=== PATIENT | female | born 1960 | race Caucasian/White ===

== ENCOUNTER 2020-01-21 13:48 | Outpatient (CLI) | payer OTHER ==
[2020-01-21 18:02] LABS: Mean Corpuscular HGB CONC 32.7 G/DL (32.0-36.0); Mean Corpuscular Hemoglobin 28.3 PG (27.0-33.0); Mean Corpuscular Volume 86.5 fl (80.0-100.0); Mean Platelet Volume 9.5 fl (7.4-10.4); Platelet Count 296 10x3/uL (130-400); RBC Distribution Width 13.2 % (11.5-14.5); Red Blood Cell (RBC) Count 4.95 10x6/uL (3.90-5.20)
[2020-01-21 18:08] LABS: Anion Gap 15 mmol/L (10-20); BUN (Urea Nitrogen) 16 mg/dL (9.8-20.1); Calc. Creatinine Clearance 0 mL/min (70-130); Calcium 9.3 mg/dL (7.8-10.44); Carbon Dioxide 29 mmol/L (23-31); Chloride 91 mmol/L (98-107); Estimated GFR-MDRD 68; Glucose 104 mg/dL (80-115); Potassium 5.1 mmol/L (3.5-5.1); Sodium 130 mmol/L (136-145)
[2020-01-22 04:28] LABS: SARS-CoV-2 MS2 Positive; SARS-CoV-2 N Gene Negative; SARS-CoV-2 S Gene Negative; SARS-CoV-2 by NAA Not Detected (NotDetected); SARS-CoV-2 orf1ab Negative
--- NOTE | 2020-01-26 07:16 | EKG ---
Test Reason : Blood Pressure : / mmHG Vent. Rate : 065 BPM Atrial Rate : 065 BPM P-R Int : 162 ms QRS Dur : 072 ms QT Int : 386 ms P-R-T Axes : 026 083 046 degrees QTc Int : 401 ms Normal sinus rhythm Low voltage QRS Nonspecific ST abnormality Abnormal ECG No previous ECGs available Confirmed by JENNIFER IVEY MD ([id number]) on 01/26/2020 7:16:17 AM Referred By: EDVIN Confirmed By:JENNIFER IVEY MD
== END 2020-01-21 13:49 | disposition home or self-care (01) ==
LOC: LABBT 13:48
PROVIDERS: ATTEND Student in an Organized Health Care Education/Training Program
DX: Z01.818 Encounter for other preprocedural examination (principal); Z20.828 Contact with and (suspected) exposure to other viral communicable diseases; J38.00 Paralysis of vocal cords and larynx, unspecified; J39.2 Other diseases of pharynx; J31.2 Chronic pharyngitis; J38.3 Other diseases of vocal cords
CPT/HCPCS: 80048; 87635; 93005; 93010; U0003

== ENCOUNTER 2020-01-26 08:11 | Inpatient (IN) | payer OTHER ==
[2020-01-25 13:25] VITALS: BMI 26.3
[2020-01-26] MEDS ORDERED: Dexamethasone 20 MG/5 ML VIAL ONE (09:04)
[2020-01-26] MEDS ORDERED: ePHEDrine 50 MG/ML VIAL ONE (09:04)
[2020-01-26] MEDS ORDERED: PROPOFOL 200 MG/20 ML VIAL ONE (09:04)
[2020-01-26] MEDS ORDERED: PHENYLEPHRINE-NS 100 MCG/ML 10 ML SYRINGE ONE (09:04)
[2020-01-26] MEDS ORDERED: Glycopyrrolate 0.2 MG/ML 5 ML SYRINGE ONE (09:04)
[2020-01-26] MEDS ORDERED: Albuterol Sulfate HFA (OR ONLY) ONE (09:04)
[2020-01-26] MEDS ORDERED: Succinylcholine 200 MG/10 ml SYRINGE FS ONE (09:04)
[2020-01-26] MEDS ORDERED: Lidocaine 1% PF 5 ML VIAL ONE (09:04)
[2020-01-26] MEDS ORDERED: Rocuronium Bromide 10 MG/ML (10ML VIAL) ONE (09:04)
[2020-01-26] MEDS ORDERED: Ondansetron PF 4 MG/2 ML Vial ONE (09:04)
[2020-01-26] MEDS ORDERED: EPINEPHrine 1 MG/ML AMP ONE (09:24)
[2020-01-26] MEDS ORDERED: Dexmedetomidine 200 MCG/2 ML VIAL ONE (09:26)
[2020-01-26] MEDS ORDERED: Fentanyl 100 MCG/2 ML VIAL ONE ×3 (09:26→13:24)
[2020-01-26] MEDS ORDERED: Midazolam HCl 2 mg/2 ml Vial ONE (09:32)
[2020-01-26] MEDS ORDERED: Propofol 1,000 MG/100 ML VIAL IV ONE (09:51)
[2020-01-26] MEDS ORDERED: Propofol 500 MG/50 ML VIAL ONE (09:51)
[2020-01-26] MEDS ORDERED: SUGAMMADEX SODIUM 500 MG/5 ML VIAL ONE (09:52)
[2020-01-26] MEDS ORDERED: SUGAMMADEX SODIUM 200 MG/2 ML VIAL ONE (09:53)
[2020-01-26] MEDS ORDERED: Promethazine HCl 25 MG/ML VIAL SLOW IVP PRN (10:33)
[2020-01-26] MEDS ORDERED: Promethazine HCl 25 MG/ML VIAL IM PRN (10:33)
[2020-01-26] MEDS ORDERED: Ondansetron HCl/PF 4 MG/2 ML Vial IVP PRN (10:33)
[2020-01-26] MEDS ORDERED: Acetaminophen 325 MG TAB PO PRN (15:54)
[2020-01-26] MEDS ORDERED: diphenhydrAMINE 50 MG/ML VIAL IVP PRN (15:56)
[2020-01-26] MEDS: Dexamethasone 10 MG/ML VIAL SLOW IVP SCH ×2 (16:59→22:47)
[2020-01-26] MEDS: HYDROcodone/Acetaminophen 5/325 mg Tablet PO PRN ×2 (17:09→22:47)
[2020-01-26] MEDS: Famotidine 20 MG TAB PO SCH (21:17)
--- NOTE | 2020-01-27 06:57 | OP ---
DATE OF PROCEDURE: 01/26/2020 PREOPERATIVE DIAGNOSES: Laryngeal mass, hoarseness, and difficulty breathing with exertion. POSTOPERATIVE DIAGNOSES: Laryngeal mass, hoarseness, and difficulty breathing with exertion. PROCEDURES PERFORMED: Excision of laryngeal mass, biopsy, and laryngoscopy with operative telescope. PERMIT: Procedures, benefits, and risks including those of bleeding, infection, injury from anesthesia, changes to voice, allergic reaction, scarring and shortness of breath necessitating revision repair, and the possible need for tracheostomy and alternatives were reviewed with the patient and family who expressed understanding of the information. The consent form was signed and witnessed and a paper copy of the consent form is available for review in the paper chart. INDICATIONS: A 59-year-old female patient presenting to the clinic with few months of hoarseness and increasing difficulty breathing. Flexible laryngoscopy showed a left-sided true vocal fold immobility with glottic and subglottic mass. CT scan confirmed a laryngeal mass without significant lymphadenopathy. The patient presented to the clinic requesting evaluation and treatment and given the mass location, she was taken to the operating room now for operative intervention. ASSISTANTS: None. FINDINGS: Left-sided true vocal fold and subglottic laryngeal mass. DESCRIPTION OF OPERATION: The patient was brought to the operating room and laid supine on operating room table. The patient was preoxygenated with a mask and mask assisted ventilation with minimal sedation was given. After the patient was sedated with minimal sedation and succinylcholine, both Anesthesia and myself evaluated the larynx and it was clear that an endotracheal tube could not be passed around the mass safely without causing significant bleeding and so the patient was turned 90 degrees towards the operative table and a 2 Adorno laryngoscope was used to suspend the epiglottis in the larynx and a rigid endoscope was used with a 5.0 endotracheal tube over the endoscope was used to intubate the patient using a Seldinger technique, and the endoscope was used to confirm the placement of the endotracheal tube after which the Anesthesia confirmed placement of the endotracheal tube visually as well as with end-tidal CO2 with tidal volume and chest expansion as well as with auscultation. After the patient was intubated carefully, a Jayesh laryngoscope was used to suspend the larynx and the larynx was suspended on a bed mounted Joseph stand. After this was completed, the larynx was suctioned. There was a minimal amount of bleeding from previous intubation attempts by Anesthesia, which was suctioned clear and the mass was clearly seen. Several small biopsies were taken with a small cup forceps and sent for permanent pathologic evaluation. Using with the help of the operative endoscope, after which large cup forceps were used to continually remove sections and debride sections of the tumor. After the tumor was debulked, the laryngeal microdebrider was brought and placed on a setting of 3000 rpm and with the help of the operative telescope, the tumor was continually excised back towards the cartilage of the larynx, both in an effort to alleviate the patient's mass effect of the tumor on the airway as well as to open a passage for evaluation and for suctioning and for the endotracheal tube. After this was complete, the Jayesh laryngoscope was removed and the larynx was suctioned and the endotracheal tube was removed. Again, a 2 Adorno laryngoscope was then used to evaluate the larynx and then saw that the mass effect from the tumor had largely been alleviated and then afterwards the endotracheal tube was replaced using the same technique. The area was then irrigated and suctioned and an epinephrine-soaked pledget was placed in order to achieve hemostasis. The operative telescope was then used to evaluate the larynx, both the glottis and subglottis and there was significant room for the endotracheal tube to be replaced and removed. The patient was turned over to Anesthesia for emergence and the patient was extubated and was breathing well without stridor and transferred to the PACU with pulse oximeter. In the PACU, the patient was monitored with pulse oximetry and no stridor or difficulty breathing or upper airway noises were seen or heard, and the patient was breathing well and admitted for observation. Job ID: [id number]
[2020-01-27] MEDS: HYDROcodone/Acetaminophen 5/325 mg Tablet PO PRN (08:00)
[2020-01-27] MEDS: Famotidine 20 MG TAB PO SCH (08:00)
[2020-01-27] MEDS: Dexamethasone 10 MG/ML VIAL SLOW IVP SCH (08:01)
[2020-01-27 09:32] VITALS: BP 152/83; TEMP 97.7
--- NOTE | 2020-01-30 03:41 | PQF ---
Dear : Rodney Zavala Date 01/30/20 Please exercise your independent, professional judgment in responding to the clarification form. Clinical indicators are provided on the bottom of this form for your review Can you please further clarify the diagnosis of the patient? ___ Final Diagnosis on the Pathology report: Invasive well differentiated squamous cell carcinoma Please check appropriate box(es): [ ] Agree w the pathology finding of: Invasive well differentiated squamous cell carcinoma [ ] Other explanation of pathology findings (please specify) [x ] Other diagnosis please specify laryngeal squamous cell carcinoma [ ] Unable to determine Physician Signature: Date/Time: For continuity of documentation, please document condition throughout progress notes and discharge summary. Thank You. To be completed by CDI/Coding staff for physician review: Present Clinical Indicators - Signs / Symptoms / Labs Results and Location in Medical Record [ x ] Invasive well differentiated squamous cell carcinoma Pathology Report [ x ] The majority of the tissue is involved by the carcinoma OP report pg.1 [ x ] Laryngeal mass OP report pg.1 [ x ] Hoarseness OP report pg.1 [ x ] Difficulty of breathing with exertion OP report pg.1 [ x ] Left sided true vocal fold and subglottic laryngeal mass OP report pg.1 Present Risk Factors Results and Location in Medical Record [ x ] 59 years old Anesthesia record [ x ] HTN Anesthesia record [ x ] Smoker PPD x 40 years Anesthesia record [ x ] Family History of cancer HP 01/25 Present Treatments Results and Location in Medical Record [ x ] Laryngeal biopsy OP report pg. 1 [ x ] Laryngoscopy with operative telescope OP report pg. 1 [ x ] IV Fluids MAR CDS/[employer] Signature: Santosh Olivares Phone #: [facility] [phone] Date This is a permanent part of the Medical Record [facility]
== END 2020-01-27 09:55 | disposition home or self-care (01) | DRG 145 ==
LOC: SDC 08:11 → T4-A 11:24
PROVIDERS: ADMIT Student in an Organized Health Care Education/Training Program; ATTEND Student in an Organized Health Care Education/Training Program
PROC: 0CBS8ZZ Excision of Larynx, Via Natural or Artificial Opening Endoscopic (ICD-10-PCS; principal; 2020-01-26)
DX: C32.9 Malignant neoplasm of larynx, unspecified (principal); J38.00 Paralysis of vocal cords and larynx, unspecified; Z20.828 Contact with and (suspected) exposure to other viral communicable diseases; I10 Essential (primary) hypertension; I25.10 Atherosclerotic heart disease of native coronary artery without angina pectoris; J30.2 Other seasonal allergic rhinitis; F41.9 Anxiety disorder, unspecified; F17.210 Nicotine dependence, cigarettes, uncomplicated; Z88.5 Allergy status to narcotic agent; I25.2 Old myocardial infarction; Z95.810 Presence of automatic (implantable) cardiac defibrillator; Z79.82 Long term (current) use of aspirin; Z79.01 Long term (current) use of anticoagulants
CPT/HCPCS: 88305; J0171; J0690; J1100; J2250; J2405; J2704; J3010; J3490

== ENCOUNTER 2020-02-09 09:12 | Outpatient (CLI) | payer OTHER ==
--- NOTE | 2020-02-09 14:03 | PET ---
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 Exam requested for initial staging. TECHNIQUE: PET scanning with CT attenuation correction was performed from the vertex through the proximal thighs following the intravenous administration of 12 mCi F18-FDG in the right antecubital fossa. FINDINGS: There is intense FDG localization in the mass involving the left glottis with a SUV of 11.6. There is mildly increased uptake in a left Level II cervical lymph node with a SUV of 2.6. No nicholas hypermetabolism is seen in the right side of the neck, chest, axilla, abdomen, pelvis, or in guinal regions. No hypermetabolic pulmonary nodules, liver, adrenal glands, or skeleton are seen. There is physiologic activity in the brain, GI and tracts. The CT scan used for attenuation correction demonstrates no evidence of pleural effusions or ascites. There is scarring at the peripheral aspect of the left lower lobe and an 18 mm ground-glass nodule i n the superior segment of the right lower lobe. IMPRESSION: 1. Left vocal cord malignancy with probable left Level II cervical lymph nicholas metastasis. 2. Nonhypermetabolic 18 mm right lower lobe lung nodule. A follow-up CT scan of the chest is recomme nded in 3 months. POS: SHINE
== END 2020-02-09 09:13 | disposition home or self-care (01) ==
LOC: PET 09:12
PROVIDERS: ATTEND Radiology Radiation Oncology
DX: C32.0 Malignant neoplasm of glottis (principal); R91.1 Solitary pulmonary nodule
CPT/HCPCS: 78815; A9552

== ENCOUNTER 2020-02-24 08:45 | Day surgery (SDC) | payer OTHER ==
[2020-02-24] MEDS ORDERED: CISplatin 75 MG, manNITOL 12.5 GM in Sodium Chloride 0.9% 500 ML IV SCH (09:00)
[2020-02-24] MEDS ORDERED: Sodium Chloride 0.9% 500 ML IV SCH ×2 (09:00)
[2020-02-24] MEDS ORDERED: PALONOSETRON HCL 0.05 MG/ML 5 ML VIAL IVP SCH (09:00)
[2020-02-24 09:16] VITALS: BP 104/59; TEMP 97.7
[2020-02-24] MEDS ORDERED: Sodium Chloride 0.9% 20 ML ONE (09:32)
== END 2020-02-24 13:42 | disposition home or self-care (01) ==
LOC: ONC/OP 08:45
PROVIDERS: ATTEND Internal Medicine Hematology & Oncology
DX: Z51.11 Encounter for antineoplastic chemotherapy (principal); C32.9 Malignant neoplasm of larynx, unspecified; F17.210 Nicotine dependence, cigarettes, uncomplicated; Z88.5 Allergy status to narcotic agent
CPT/HCPCS: 96361; 96367; 96375; 96413; J1100; J1453; J2150; J2469; J3480; J3490; J7030; J9060

== ENCOUNTER 2020-03-02 09:07 | Day surgery (SDC) | payer OTHER ==
[~2020-03-02 09:07] MED LIST: CISplatin 75 MG, manNITOL 12.5 GM in Sodium Chloride 0.9% 500 ML IV SCH; PALONOSETRON HCL 0.05 MG/ML 5 ML VIAL IVP SCH; Sodium Chloride 0.9% 500 ML IV SCH
[2020-03-02] MEDS ORDERED: Sodium Chloride 0.9% 20 ML ONE (09:57)
[2020-03-02 14:48] VITALS: BP 138/69; TEMP 97.9
== END 2020-03-02 14:51 | disposition home or self-care (01) ==
LOC: ONC/OP 09:07
PROVIDERS: ATTEND Internal Medicine Hematology & Oncology
DX: Z51.11 Encounter for antineoplastic chemotherapy (principal); C32.9 Malignant neoplasm of larynx, unspecified; F17.210 Nicotine dependence, cigarettes, uncomplicated; Z88.5 Allergy status to narcotic agent
CPT/HCPCS: 96361; 96367; 96375; 96413; J1100; J1453; J2150; J2469; J3480; J3490; J7030; J9060

== ENCOUNTER 2020-04-04 14:36 | Inpatient (IN) | payer BC ==
[2020-04-04] MEDS ORDERED: Norepinephrine 8 MG/0.9% NS 250 ML ONE (15:03)
[2020-04-04] MEDS ORDERED: Rocuronium Bromide 10 MG/ML (10ML VIAL) ONE (15:04)
[2020-04-04] MEDS ORDERED: Albuterol Sulfate 2.5 mg/3 ml Neb ONE (15:25)
[2020-04-04] MEDS ORDERED: Fentanyl 100 MCG/2 ML VIAL ONE (15:32)
[2020-04-04] MEDS ORDERED: methylPREDNISolone Sod Succ/PF 125 MG/2 ML VIAL ONE (15:34)
[2020-04-04] MEDS ORDERED: Magnesium 2 GM/50 ML BAG (IN WATER) ONE (15:34)
--- NOTE | 2020-04-04 15:45 | RAD ---
XR Chest 1 View Portable HISTORY: Respiratory failure, throat cancer, altered mental status COMPARISON: 12/19/2013 FINDINGS: Interval placement of an endotracheal tube is seen with tip at the level of the clavicular heads. Cecilio ogastric tube can be traced into the stomach with tip excluded from the film. Left-sided pacer device remains in place. The heart size is normal. No lobar consolidation, pneumothoraces, donn pulm onary edema or large effusions are identified.
[2020-04-04] MEDS ORDERED: Fentanyl CADD 100 ML IV SCH (16:00)
--- NOTE | 2020-04-04 16:18 | CT ---
CT BRAIN WITHOUT CONTRAST: HISTORY: Malignant neoplasm of the glottis. Altered mental status Disclaimer: Absence of IV contrast reduces the sensitivity of the exam. Possibility of metastatic dis ease cannot be excluded. COMPARISON: None FINDINGS: No evidence of acute infarct, hemorrhage, midline shift or abnormal extra-axial fluid collections is seen. The ventricular size is appropriate and the basilar cisterns are patent. The bony calvarium is intact. The mastoid air cells are well aerated. There is mucosal disease in the paranasal sinuses. A small amount of fluid is seen in the left maxillary sinus. IMPRESSION: No CT evidence of acute intracranial process.
[2020-04-04 17:18] LABS: Bilirubin Negative (Negative); Blood, Urine Trace (Negative); Clarity Clear (Clear); Glucose, Urine (Dipstick) Normal (Negative); Ketone, Urine Negative (Negative); Leukocyte Negative Leu/uL (Negative); Nitrite Negative (Negative); Protein, Urine (Dipstick) 50 mg/dL (Neg-Trace); pH, Urine 5.5 (5.0-9.0)
[2020-04-04 17:19] LABS: RBC/HPF 0-3 HPF (0-3); Squamous Epithelial 0-3 HPF (0-3); WBC/HPF 0-3 HPF (0-3)
[2020-04-04 17:21] LABS: Bacteria/HPF 1+ HPF (None Seen)
[2020-04-04] MEDS ORDERED: Propofol 1,000 MG/100 ML VIAL IV ONE (17:28)
[2020-04-04 17:31] LABS: Actual Bicarbonate (HCO3a) 18.3 mEq/L (22-28); CO2 Tension 51.2 mmHg (35.0-45.0); O2 Tension (PaO2), arterial 90.2 mmHg (> 80.0); pH, Arterial 7.17 (7.35-7.45)
[2020-04-04 17:32] LABS: Carboxyhemoglobin (COHb) 2.2 gm% (0.0-3.0); Hemoglobin (Hb) 10.8 g/dL (12.0-16.0)
[2020-04-04 17:33] LABS: Analyzer IN Cardio ER; Calcium, Ionized (arterial) 1.02 mmol/L (1.12-1.30); Potassium - ABG Lab 5.09 mmol/L (3.70-5.30)
[2020-04-04 17:34] LABS: Puncture Site LRA
[2020-04-04 17:34] LABS: Amphetamine Not Detected (NotDetected); Barbiturates Screen Not Detected (NotDetected); Benzodiazepine Screen Detected (NotDetected); Cocaine Metabolite Screen Not Detected (NotDetected); Medtox Control Line Valid? VALID (VALID); Medtox Reader # READER 4; Methadone Not Detected (NotDetected); Methamphetamine Not Detected (NotDetected); Opiate Screen Detected (NotDetected); Oxycodone Screen Not Detected (NotDetected); Phencyclidine (PCP) Not Detected (NotDetected); THC/Cannabinoid Screen Detected (NotDetected); Tricyclic Screen Detected (NotDetected)
[2020-04-04 17:35] LABS: #Basophils 0.1 thou/uL (0.0-0.2); #Lymphocytes 0.2 thou/uL (1.20-3.40); #Monocytes 0.2 thou/uL (0.11-0.59); #Neutrophils 5.9 thou/uL (1.40-6.50); %Basophils 1.2 % (0.0-1.0); %Eosinophils 0.1 % (0.0-10.0); %Lymphocytes 3.5 % (21.0-51.0); %Monocytes 3.2 % (0.0-10.0); Hemoglobin 9.6 g/dL (12.0-16.0); Mean Corpuscular HGB CONC 32.5 g/dL (32.0-36.0); Mean Corpuscular Hemoglobin 29.5 pg (27.0-31.0); Mean Corpuscular Volume 90.7 fL (78.0-98.0); Mean Platelet Volume 8.6 fL (7.4-10.4); Platelet Count 51 thou/uL (130-400); RBC Distribution Width 14.1 % (11.5-14.5); Red Blood Cell (RBC) Count 3.25 mill/uL (4.20-5.40); White Blood Cell (WBC) Count 6.4 thou/uL (4.8-10.8)
[2020-04-04 17:58] LABS: ALT (SGPT) 1563 U/L (8-55); AST (SGOT) 2297 U/L (5-34); Albumin 3.1 g/dL (3.4-4.8); Alcohol Less than 10 mg/dL (Less than 10); Alkaline Phosphatase 131 U/L (40-110); Anion Gap 17 mmol/L (10-20); BUN (Urea Nitrogen) 22 mg/dL (9.8-20.1); Calc. Creatinine Clearance 0 mL/min (70-130); Calcium 6.8 mg/dL (7.8-10.44); Carbon Dioxide 18 mmol/L (23-31); Chloride 95 mmol/L (98-107); Glucose 121 mg/dL (80-115); Potassium 5.1 mmol/L (3.5-5.1); Protein, Total 5.1 g/dL (5.8-8.1); Salicylate Less than 8.0 mg/dL (15.0-30.0); Sodium 125 mmol/L (136-145)
[2020-04-04] MEDS ORDERED: Cefepime 2 GM VIAL ONE (17:58)
[2020-04-04] MEDS ORDERED: Vancomycin 1.5 GRAM/300 ML BAG 1.5 GM in Premix Bag 1 BAG IVPB SCH (18:30)
[2020-04-04 18:46] LABS: Lactic Acid 1.1 mmol/L (0.5-2.2)
[2020-04-04 19:03] LABS: SARS-CoV-2 NAA Rapid Test Not Detected (NotDetected)
[2020-04-04] MEDS ORDERED: Vancomycin HCl 1.5 GM in Sodium Chloride 0.9% 250 ML 300 ML IVPB SCH (19:15)
--- NOTE | 2020-04-04 19:22 | RAD ---
PORTABLE CHEST: History: Post central line placement Comparison: Earlier same date FINDINGS: Endotracheal and NG tubes are in satisfactory position. Right sided central line is placed. Catheter tip overlying the superior vena cava. No signs of pneumothorax. Right lower lobe parenchymal changes are similar to the prior examination. There is some worsening to the left lower lobe parenchymal turner ge. IMPRESSION: 1. Placement of a right sided central line. No pneumothorax. 2. Some worsening to the parenchymal changes in the left lung base. POS: MARISOL
[2020-04-04] MEDS ORDERED: Morphine 2 MG/ML VIAL SLOW IVP PRN (20:15)
[2020-04-04] MEDS ORDERED: DISCONTINUE PREVIOUS NARCOTIC PAIN MEDICATIONS AND BENZODIAZEPINES FS SCH (20:15)
[2020-04-04] MEDS ORDERED: Fentanyl BOLUS 250 ML IVPB PRN (20:15)
[2020-04-04] MEDS ORDERED: Propofol BOLUS 1,000 MG/100 ML VIAL IV PRN (20:15)
[2020-04-04] MEDS: Sodium Chloride 0.9% 1,000 ML IV SCH (20:51)
--- NOTE | 2020-04-04 22:10 | PDOC.HHP ---
Hospitalist HPI Hypoxia History of Present Illness: This is a 59-year-old female patient with a history of NE, throat cancer, hypothyroidism and hypertension who was brought in by EMS on account of altered mental status. Apparently EMS was activated after she developed altered mental status at home and was brought to the ED for further evaluation. Initial evaluation however patient was in acute respiratory distress and failure with hypotension. She was immediately intubated after supplemental oxygen at 15 L showed persistent hypoxia. Also received a central line and pressors were initiated. Initial labs showed hemoglobin 9.6, WBC 6.4 and platelets 51. Chemistry showed hyponatremia of 125, bicarb 18, creatinine 1.41 from 1.042 weeks ago. AST and ALT were markedly elevated at 2297 and 1563 respectively with alkaline phosphatase is 131. Troponin was 0.027 and lactate was 2.1. ABG post intubation showed pH of 7.17, bicarb 18.3, PCO2 51.2 and PO2 19.2. Urinalysis was generally unremarkable, toxicology however showed opiates tricyclic's benzodiazepine and cannabinoids. Imaging showed CT head with no acute intracranial process. Chest x-ray showed no acute intrathoracic process. She received vancomycin and cefepime for possible sepsis, Solu-Medrol magnesium sulfate and albuterol sulfate inhalation. Hospitalist team was consulted for admission u Allergies/Adverse Reactions: Allergy/AdvReac Type Severity Reaction Status Date / Time morphine Allergy RASH, Verified 01/25/20 13:16 ITCHING Home Medications: Medication Instructions Recorded Confirmed Type ALPRAZolam [Alprazolam] 1 mg PO BID 01/25/20 04/09/20 History Aspirin [Aspirin EC] 81 mg PO DAILY 01/25/20 04/09/20 History Cholecalciferol (Vitamin D3) 125 mcg PO HS 01/25/20 04/09/20 History [Vitamin D3] Clopidogrel Bisulfate [Clopidogrel] 75 mg PO DAILY 01/25/20 04/09/20 History Cyclobenzaprine [Flexeril] 10 mg PO TID PRN 01/25/20 04/09/20 History Estradiol 1 mg PO DAILY 01/25/20 04/09/20 History Furosemide 20 mg PO DAILY PRN 01/25/20 04/09/20 History Isosorbide Mononitrate [Ismo] 20 mg PO BID 01/25/20 04/09/20 History Levothyroxine Sodium 88 mcg PO DAILY 01/25/20 04/09/20 History Lisinopril 10 mg PO DAILY 01/25/20 04/09/20 History Omeprazole 20 mg PO BID 01/25/20 04/09/20 History Potassium Chloride 8 meq PO DAILY 01/25/20 04/09/20 History Temazepam 30 mg PO HS PRN 01/25/20 04/09/20 History Ubidecarenone [Co Q-10] 100 mg PO DAILY 01/25/20 04/09/20 History HYDROcodone/Acetaminophen [[place] 1 each PO Q6HR PRN #50 tablet 01/27/20 04/09/20 Rx 5-325 Tablet] Cefdinir [Omnicef] 300 mg PO BID 8 Days #16 cap 04/09/20 Rx Folic Acid [Folvite] 1 mg PO DAILY #30 tab 04/09/20 Rx Magnesium Glycinate [Mag Glycinate] 400 mg PO DAILY 30 Days #30 tablet 04/09/20 Rx Mometasone/Formoterol 100/5 1 puff INH BID-RT 30 Days #1 inh 04/09/20 Rx [Dulera 100 Mcg/5 Mcg Inhaler] Multivitamin W/ Minerals 1 tab PO DAILY 30 Days #30 tab 04/09/20 Rx [Theragran M] Sertraline HCl [Zoloft] 100 mg PO DAILY tab 04/09/20 Rx Thiamine 100 mg PO DAILY 30 Days #30 tab 04/09/20 Rx predniSONE 10 mg PO Q24H 5 Days #5 tab 04/09/20 Rx Past History: PMHx:NE, throat cancer, hypothyroidism and hypertension PSHx: Wrist and Shoulder surgery. section FHx:None of significance Social:Smokes and drinks alcohol, no drug use Hospitalist HPI ROS ROS unobtainable: due to mental status Hospitalist Exam Vitals: Vital Signs (12 hours) Pulse BP 04/04/20 20:13 58 L 144/75 H Weight Admit Weight 165 lb 5.547 oz Weight 165 lb 5.547 oz General - other findings: Intubated sedated on ventilator. Eye: anicteric sclera ENT: normocephalic atraumatic Heart: RRR, no murmur, no gallops, no rubs Respiratory: CTAB, no wheezes, no rales, no ronchi Gastrointestinal: soft, non-distended, normal bowel sounds Extremities: no cyanosis, no clubbing, no edema Neurological - other findings: Sedated, pupils sluggish Psychiatric - other findings: Unable to assess Hospitalist Results Result Diagrams: 04/07/20 03:30 04/08/20 12:09 Lab results: Laboratory Last Values WBC 6.4 thou/uL (4.8-10.8) 04/04/20 17:20 RBC 3.25 mill/uL (4.20-5.40) L 04/04/20 17:20 Hgb 9.6 g/dL (12.0-16.0) L 04/04/20 17:20 Hct 29.5 % (36.0-47.0) L 04/04/20 17:20 MCV 90.7 fL (78.0-98.0) 04/04/20 17:20 MCH 29.5 pg (27.0-31.0) 04/04/20 17:20 MCHC 32.5 g/dL (32.0-36.0) 04/04/20 17:20 RDW 14.1 % (11.5-14.5) 04/04/20 17:20 Plt Count 51 thou/uL (130-400) L 04/04/20 17:20 MPV 8.6 fL (7.4-10.4) 04/04/20 17:20 Neutrophils % 92.0 % (42.0-75.0) H 04/04/20 17:20 Neutrophils % (Manual) Not Reportable 04/04/20 17:20 Lymphocytes % 3.5 % (21.0-51.0) L 04/04/20 17:20 Monocytes % 3.2 % (0.0-10.0) 04/04/20 17:20 Eosinophils % 0.1 % (0.0-10.0) 04/04/20 17:20 Basophils % 1.2 % (0.0-1.0) H 04/04/20 17:20 Neutrophils # 5.9 thou/uL (1.40-6.50) 04/04/20 17:20 Lymphocytes # 0.2 thou/uL (1.20-3.40) L 04/04/20 17:20 Monocytes # 0.2 thou/uL (0.11-0.59) 04/04/20 17:20 Eosinophils # 0.0 thou/uL (0.0-0.7) 04/04/20 17:20 Basophils # 0.1 thou/uL (0.0-0.2) 04/04/20 17:20 Specimen Type ARTERIAL 04/04/20 17:20 Puncture Site LRA 04/04/20 17:20 Bicarbonate Actual 18.3 mEq/L (22-28) L 04/04/20 17:20 ABG pH 7.17 (7.35-7.45) L* 04/04/20 17:20 ABG pCO2 51.2 mmHg (35.0-45.0) H 04/04/20 17:20 ABG pO2 90.2 mmHg (> 80.0) H 04/04/20 17:20 ABG O2 Sat (Measured) 94.7 % (94.0-98.0) 04/04/20 17:20 ABG O2 Content 14.1 vol% (18.0-21.0) L 04/04/20 17:20 ABG Base Excess -10.0 mEq/L (-2.0 to +3.0) L 04/04/20 17:20 ABG Hematocrit 32.0 % (36.0-47.0) L 04/04/20 17:20 ABG Hemoglobin 10.8 g/dL (12.0-16.0) L 04/04/20 17:20 ABG Oxyhemoglobin 92.0 % (94.0-98.0) L 04/04/20 17:20 ABG Carboxyhemoglobin 2.2 gm% (0.0-3.0) 04/04/20 17:20 ABG Methemoglobin 0.70 gm% (0.04-1.52) 04/04/20 17:20 ABG Deoxyhemoglobin 5.1 % (0.0-2.9) H 04/04/20 17:20 Cecilio Test NOT DONE 04/04/20 17:20 A-a O2 Gradient 416.200 mmHg (0-20) H 04/04/20 17:20 Sodium 122 mmol/L (135-148) L 04/04/20 17:20 Potassium 5.09 mmol/L (3.70-5.30) 04/04/20 17:20 Chloride 93 mmol/L (98-106) L 04/04/20 17:20 Ionized Calcium 1.02 mmol/L (1.12-1.30) L 04/04/20 17:20 Mode of Support SIMV/PS 04/04/20 17:20 % Minute Volume Not Reportable 04/04/20 17:20 Mechanical Rate 14 min 04/04/20 17:20 Inspired O2 80 % 04/04/20 17:20 Tidal Volume 350 ml 04/04/20 17:20 Spontaneous Tidal Vol 387 ml 04/04/20 17:20 Peak Inspir Pressure 50 cmH2O 04/04/20 17:20 Pressure Support 10 cmH2O 04/04/20 17:20 PEEP or CPAP 5.0 cmH2O 04/04/20 17:20 Sodium 125 mmol/L (136-145) L 04/04/20 15:25 Potassium 5.1 mmol/L (3.5-5.1) 04/04/20 15:25 Chloride 95 mmol/L (98-107) L 04/04/20 15:25 Carbon Dioxide 18 mmol/L (23-31) L 04/04/20 15:25 Anion Gap 17 mmol/L (10-20) 04/04/20 15:25 BUN 22 mg/dL (9.8-20.1) H 04/04/20 15:25 Creatinine 1.41 mg/dL (0.6-1.1) H 04/04/20 15:25 Estimated GFR (MDRD) 38 04/04/20 15:25 Glucose 121 mg/dL (80-115) H 04/04/20 15:25 Lactic Acid 1.1 mmol/L (0.5-2.2) 04/04/20 18:30 Calcium 6.8 mg/dL (7.8-10.44) L 04/04/20 15:25 Total Bilirubin 1.0 mg/dL (0.2-1.2) 04/04/20 15:25 AST 2297 U/L (5-34) H 04/04/20 15:25 ALT 1563 U/L (8-55) H 04/04/20 15:25 Alkaline Phosphatase 131 U/L (40-110) H 04/04/20 15:25 Troponin I 0.027 ng/mL (< 0.028) 04/04/20 17:20 Serum Total Protein 5.1 g/dL (5.8-8.1) L 04/04/20 15:25 Albumin 3.1 g/dL (3.4-4.8) L 04/04/20 15:25 Globulin 2.0 g/dL (2.4-3.5) L 04/04/20 15:25 Albumin/Globulin Ratio 1.6 g/dL (1.2-2.2) 04/04/20 15:25 Urine Color Yellow (Yellow) 04/04/20 16:30 Urine Clarity Clear (Clear) 04/04/20 16:30 Urine pH 5.5 (5.0-9.0) 04/04/20 16:30 Ur Specific [place] 1.020 (1.002-1.036) 04/04/20 16:30 Urine Protein 50 mg/dL (Neg-Trace) A 04/04/20 16:30 Urine Glucose (UA) Normal mg/dL (Negative) 04/04/20 16:30 Urine Ketones Negative mg/dL (Negative) 04/04/20 16:30 Urine Blood Trace (Negative) A 04/04/20 16:30 Urine Nitrite Negative (Negative) 04/04/20 16:30 Urine Bilirubin Negative (Negative) 04/04/20 16:30 Urine Urobilinogen 2.0 mg/dL (Less than 2) A 04/04/20 16:30 Ur Leukocyte Esterase Negative Parag/uL (Negative) 04/04/20 16:30 Urine RBC 0-3 HPF (0-3) 04/04/20 16:30 Urine WBC 0-3 HPF (0-3) 04/04/20 16:30 Ur Squamous Epith Cells 0-3 HPF (0-3) 04/04/20 16:30 Urine Bacteria 1+ HPF (None Seen) A 04/04/20 16:30 Hyaline Casts 4-6 LPF (0-3) A 04/04/20 16:30 Salicylates Less than 8.0 mg/dL (15.0-30.0) L 04/04/20 15:25 Urine Opiates Screen Detected (NotDetected) H 04/04/20 16:30 Ur Oxycodone Screen Not Detected (NotDetected) 04/04/20 16:30 Urine Methadone Screen Not Detected (NotDetected) 04/04/20 16:30 Ur Propoxyphene Screen Not Detected (NotDetected) 04/04/20 16:30 Acetaminophen 8.0 mcg/mL (10.0-30.0) L 04/04/20 15:25 Ur Barbiturates Screen Not Detected (NotDetected) 04/04/20 16:30 Ur Tricyclics Screen Detected (NotDetected) H 04/04/20 16:30 Ur Phencyclidine Scrn Not Detected (NotDetected) 04/04/20 16:30 Ur Amphetamines Screen Not Detected (NotDetected) 04/04/20 16:30 U Methamphetamines Scrn Not Detected (NotDetected) 04/04/20 16:30 U Benzodiazepines Scrn Detected (NotDetected) H 04/04/20 16:30 U Cocaine Metab Screen Not Detected (NotDetected) 04/04/20 16:30 U Cannabinoids Screen Detected (NotDetected) H 04/04/20 16:30 Drug Screen Comment () 04/04/20 16:30 Plasma Alcohol Less than 10 mg/dL (Less than 10) 04/04/20 15:25 Influenza A RNA INAAT Not Detected (NotDetected) 04/04/20 17:35 Influenza B RNA INAAT Not Detected (NotDetected) 04/04/20 17:35 SARS-CoV-2 Rap RNA(RT-PCR) Not Detected (NotDetected) 04/04/20 17:35 Blood Type O POSITIVE 04/04/20 17:34 Antibody Screen NEGATIVE 04/04/20 17:20 Hospitalist H&P A/P Plan: This is a 59-year-old female patient with history of NE, throat cancer on radiation therapy who was brought in from home on account of altered mental status of unclear etiology. Initial concerns possible sepsis and medication overuse. Acute encephalopathy Unclear etiologysepsis/drug-induced encephalopathy. Currently on ventilator support Continue monitor. Acute hypoxic respiratory Intubated for airway protection Continue monitoring Pulmonology consult in a.m. Possible sepsis Patient hypotensive and hypovolemic with altered mental state Hypotension may be due to benzodiazepine use however Receiving IV fluids at 100we will add a bolus of 1 L BP stable on pressors Lactate not elevated. Started on Vanco and cefepimewe will continue for now Follow-up on blood culture Normocytic anemia Globin 9.6 from baseline of 10.4 a week ago. This is in the setting of cancer treatment Monitor Thrombocytopenia Platelets 51 from a baseline of 85 a week ago. Hyponatremia Sodium 125 down from 134 2 weeks ago. She has been hospitalized 114 in the past. Probably hypovolemic We will gently rehydrate and monitor. VILMA Creatinine at 1.41 from a baseline of 1.042 weeks ago. Likely prerenal Hydrate Monitor BMP Hypocalcemia Calcium 6.8albumin 3.1. Monitor Replace calcium as needed Polysubstance abuse Urine opiates, tricyclic's, benzodiazepine, and cannabinoids positive. History of throat cancer on radiation therapy Consider heme-onc consult in a.m. VT prophylaxisSCD. Patient thrombocytopenicholding Lovenox. CODE STATUSto be discussed
[2020-04-04] MEDS ORDERED: Ventilator Sedation Protocol 1 EACH FS SCH (22:45)
[2020-04-04 22:48] LABS: Actual Bicarbonate (HCO3a) 18.3 mEq/L (22-28); Base Excess (BEa) -10.4 mEq/L (-2.0 to +3.0); Calcium, Ionized (arterial) 1.05 mmol/L (1.12-1.30); Carboxyhemoglobin (COHb) 0.6 gm% (0.0-3.0); Hemoglobin (Hb) 10.7 g/dL (12.0-16.0); O2 Tension (PaO2), arterial 96.6 mmHg (> 80.0); Potassium - ABG Lab 4.78 mmol/L (3.70-5.30)
[2020-04-04 22:49] LABS: pH, Arterial 7.15 (7.35-7.45)
[2020-04-04 22:50] LABS: Puncture Site LBA
[2020-04-05] MEDS ORDERED: Fentanyl CADD 100 ML ONE ×2 (01:12→22:26)
[2020-04-05] MEDS ORDERED: Sodium Chloride 0.9% 1,000 ML IV SCH (03:00)
[2020-04-05 03:53] LABS: #Lymphocytes 0.3 thou/uL (1.20-3.40); #Monocytes 0.1 thou/uL (0.11-0.59); %Eosinophils 0.2 % (0.0-10.0); %Lymphocytes 4.6 % (21.0-51.0); %Monocytes 2.2 % (0.0-10.0); Hemoglobin 9.8 g/dL (12.0-16.0); Mean Corpuscular HGB CONC 33.7 g/dL (32.0-36.0); Mean Corpuscular Volume 89.1 fL (78.0-98.0); Mean Platelet Volume 8.7 fL (7.4-10.4); Platelet Count 56 thou/uL (130-400); RBC Distribution Width 13.8 % (11.5-14.5); Red Blood Cell (RBC) Count 3.27 mill/uL (4.20-5.40); White Blood Cell (WBC) Count 6.4 thou/uL (4.8-10.8)
[2020-04-05 04:05] LABS: Anion Gap 16 mmol/L (10-20); BUN (Urea Nitrogen) 28 mg/dL (9.8-20.1); Calc. Creatinine Clearance 53 mL/min (70-130); Carbon Dioxide 17 mmol/L (23-31); Chloride 97 mmol/L (98-107); Glucose 115 mg/dL (80-115); Potassium 4.7 mmol/L (3.5-5.1); Sodium 125 mmol/L (136-145)
[2020-04-05] MEDS: Sodium Chloride 0.9% 1,000 ML IV SCH ×3 (05:37→23:05)
[2020-04-05] MEDS: Propofol 1,000 MG/100 ML VIAL IV PRN ×3 (05:37→20:24)
[2020-04-05 07:40] LABS: Actual Bicarbonate (HCO3a) 19.3 mEq/L (22-28); Base Excess (BEa) -6.4 mEq/L (-2.0 to +3.0); CO2 Tension 38.7 mmHg (35.0-45.0); Calcium, Ionized (arterial) 1.03 mmol/L (1.12-1.30); Carboxyhemoglobin (COHb) 0.3 gm% (0.0-3.0); Hemoglobin (Hb) 10.4 g/dL (12.0-16.0); O2 Tension (PaO2), arterial 77.2 mmHg (> 80.0); Potassium - ABG Lab 4.56 mmol/L (3.70-5.30); pH, Arterial 7.32 (7.35-7.45)
[2020-04-05 07:48] LABS: ALV-art Gradient 195.275 mmHg (0-20); Puncture Site RRA
[2020-04-05] MEDS: Cefepime 2 GM in Sodium Chloride 0.9% 100 ML IVPB SCH ×2 (08:42→20:22)
[2020-04-05] MEDS ORDERED: FLU VACC QS2020-21(6MOS UP)/PF 60 MCG/0.5 ML SYRINGE IM ONE (09:00)
[2020-04-05] MEDS ORDERED: Prevnar 13-Val Conj/PF 0.5 ML SYRINGE IM ONE (09:00)
[2020-04-05] MEDS ORDERED: Vancomycin 1 GM in Premix Bag 1 BAG IVPB SCH (09:00)
[2020-04-05] MEDS ORDERED: WATER IVPB SCH ×2 (10:15→11:00)
[2020-04-05] MEDS ORDERED: ACETYLCYSTEINE IVPB SCH ×2 (10:15→11:00)
[2020-04-05] MEDS ORDERED: DEXTROSE 5% IVPB SCH ×2 (10:15→11:00)
--- NOTE | 2020-04-05 10:26 | PDOC.HOSPP ---
- Subjective Encounter Date: 04/05/20 Encounter Time: 10:24 Subjective: Ms. Hunt was seen today in follow-up of overdose, and respiratory failure. She is intubated. She had awakened, but was agitated, and was given some additional sedation. - Objective Vital Signs & Weight: Vital Signs (12 hours) Temp Pulse Resp BP Pulse Ox 04/05/20 10:00 20 04/05/20 08:00 20 04/05/20 07:43 97 04/05/20 07:30 64 04/05/20 04:00 98 F 04/05/20 03:34 60 130/63 04/04/20 23:45 97 04/04/20 23:40 57 L 124/68 Weight Admit Weight 165 lb 5.547 oz Weight 169 lb 12.095 oz Most Recent Monitor Data Heart Rate from ECG 64 NIBP 105/53 NIBP BP-Mean 70 Respiration from ECG 23 SpO2 97 I&O: 04/04/20 04/05/20 04/06/20 06:59 06:59 06:59 Intake Total 1172.5 Output Total 730 120 Balance 442.5 -120 Result Diagrams: 04/05/20 03:34 04/05/20 03:34 Hospitalist ROS - Medication Medications: Active Medications Generic Name Dose Route Start Last Admin Trade Name Freq PRN Reason Stop Dose Admin Cefepime HCl 2 gm/ Sodium 100 mls @ 200 mls/hr 04/05/20 09:00 04/05/20 08:42 Chloride IVPB 100 mls Q12HR CATHERINE Administration Propofol 1,000 mg 04/04/20 20:15 04/05/20 05:37 Propofol 1,000 Mg/100 Ml Vial IV 05/04/20 20:15 1,000 mg INF PRN Administration TO ACHIEVE GOAL RASS Protocol Hospitalist Exam Vitals: Vital Signs (12 hours) Temp Pulse Resp BP Pulse Ox 04/05/20 10:00 20 04/05/20 08:00 20 04/05/20 07:43 97 04/05/20 07:30 64 04/05/20 04:00 98 F 04/05/20 03:34 60 130/63 04/04/20 23:45 97 04/04/20 23:40 57 L 124/68 Weight Admit Weight 165 lb 5.547 oz Weight 169 lb 12.095 oz Most Recent Monitor Data Heart Rate from ECG 64 NIBP 105/53 NIBP BP-Mean 70 Respiration from ECG 23 SpO2 97 Eye: PERRL, anicteric sclera Heart: RRR, no murmur, no gallops, no rubs, normal peripheral pulses Respiratory: rales (at the base, otherwise clear) Gastrointestinal: soft, non-tender, non-distended, normal bowel sounds, no pa lpable masses, no hepatomegaly Extremities: no cyanosis, no edema (pulses are palpable) Hosp A/P (1) Overdose Code(s): T50.901A - POISONING BY UNSP DRUG/MEDS/BIOL SUBST, ACCIDENTAL, INIT Status: Acute (2) Polysubstance abuse Code(s): F19.10 - OTHER PSYCHOACTIVE SUBSTANCE ABUSE, UNCOMPLICATED Status: Acute (3) Throat cancer Code(s): C14.0 - MALIGNANT NEOPLASM OF PHARYNX, UNSPECIFIED Status: Acute (4) Hypothyroidism Code(s): E03.9 - HYPOTHYROIDISM, UNSPECIFIED Status: Chronic (5) Hypertension Code(s): I10 - ESSENTIAL (PRIMARY) HYPERTENSION Status: Chronic (6) Respiratory failure with hypoxia Code(s): J96.91 - RESPIRATORY FAILURE, UNSPECIFIED WITH HYPOXIA Status: Acute (7) Hepatitis Status: Acute - Plan * Acute respiratory failure due to poly-substance abuse- it is unclear if this was an intentional or unintentional overdose. Continue ventilator support * Elevated Liver enzymes- ? etiology- this could be due to shock liver, but there was no recording in the ER of severe hypotension. She had multiple substances in her drug screen, tylenol level was within the normal range, but the timing of possible ingestion is unknown- will go ahead and start Mucomyst as a precaution, repeat the LFT,s and acetamenophen level. This can always be stopped * Will also check a hepatitis panel * Hypothyroidism- she appears clinically euthyroid * HTN- blood pressure is stable * Defer other management to [facility]
[2020-04-05] MEDS ORDERED: Bacteriostatic Water 30 ML VIAL FS PRN (10:30)
[2020-04-05 10:39] LABS: ALT (SGPT) 2629 U/L (8-55); Alkaline Phosphatase 130 U/L (40-110); Bilirubin, Direct 0.4 mg/dL (0.1-0.3); Bilirubin, Total 0.5 mg/dL (0.2-1.2)
[2020-04-05] MEDS: methylPREDNISolone Sod Succ 40 MG VIAL IVP SCH ×3 (10:42→23:05)
[2020-04-05 10:57] LABS: AST (SGOT) Greater than 3500 U/L (5-34)
[2020-04-05 11:06] LABS: Acetaminophen Less than 6.0 mcg/mL (10.0-30.0)
[2020-04-05 11:57] LABS: HBCM Index 0.11 S/CO (0-0.79); Hep A IgM AB Non-Reactive (NonReactive); Hep A IgM S/CO 0.11 S/CO (0-0.79); Hep B Surf Ag Non-Reactive S/CO (NonReactive); Hep C IgG Ab Non-Reactive (NonReactive); Hep C Index 0.09 S/CO (0-0.79); Hepatitis B Core IgM Abs Non-Reactive (NonReactive)
[2020-04-05] MEDS ORDERED: methylPREDNISolone Sod Succ 40 MG VIAL IVP SCH (12:00)
--- NOTE | 2020-04-05 13:00 | CON ---
DATE OF CONSULTATION: HISTORY OF PRESENT ILLNESS: Lupe Hunt is a 59-year-old female with a recent diagnosis of throat cancer, left vocal cord. She is undergoing radiation and apparently yesterday morning she was unable to be awakened by her , who says this is the first time this happened to her. Prior to that, she was very active except for a chronic cough. No shortness of breath. No chest pain. She is brought to the ER where she was still obtunded and was intubated. PAST MEDICAL HISTORY: As per the , coronary artery disease status post intervention six years ago, ongoing tobacco abuse, chronic cough, bronchitis, hypothyroidism, hypertension. PAST SURGICAL HISTORY: , shoulder surgery, cardiac stents and a pacemaker. SOCIAL HISTORY: Still smoking a pack a day. HOME MEDICATIONS: Presumably includes, 1. . 2. Temazepam 30. 3. Pravastatin. 4. Omeprazole 20. 5. Lisinopril 10. 6. Synthroid 88. 7. Ismo 20. 8. Hydrocodone. 9. Lasix 20. 10. Flexeril 10. 11. Plavix 75. 12. Coreg 12.5. 13. Aspirin. 14. Xanax. ALLERGIES: MORPHINE. REVIEW OF SYSTEMS: Otherwise unobtainable. PHYSICAL EXAMINATION: GENERAL: When we stopped the sedation, she responded by moving all four extremities. VITAL SIGNS: Respirations 20, saturations 99% on 45%, temperature 100.2, blood pressure 130/60. CHEST: Minimal rhonchi. CARDIAC: Normal S1. ABDOMEN: Soft. No masses IMAGING DATA: X-ray shows left pleural effusion. LABORATORY DATA: White count 6000, hemoglobin and hematocrit 9 and 28, platelet count is low at 56,000 decreased since February of this year. PO2 of 77, pCO2 of 38, pH 7.32, rate of 20. In the ER, PO2 was 96, pCO2 of 50, pH 7.51. Sodium 125, creatinine 1.32, BUN 28. Coronavirus virus was negative. No toxicology screen was positive for opiates, tricyclics, benzos and cannabinoids. IMPRESSION: 1. Respiratory failure syndrome. 2. Chronic obstructive pulmonary disease. 3. Throat cancer, ongoing tobacco abuse. 4. Coronary artery disease. PLAN: Minimize sedation. May consider weaning and extubation tomorrow if she is more awake. Otherwise, we will continue steroids, empiric antibiotics, IV fluids. 45 minutes of critical care time. Job ID: [id number]
[2020-04-05] MEDS ORDERED: WATER IV SCH ×2 (15:00→19:00)
[2020-04-05] MEDS ORDERED: DEXTROSE 5% IV SCH ×2 (15:00→19:00)
[2020-04-05] MEDS ORDERED: ACETYLCYSTEINE IV SCH ×2 (15:00→19:00)
[2020-04-05] MEDS: Lorazepam 2 MG/ML VIAL SLOW IVP PRN ×2 (15:06→21:39)
[2020-04-05] MEDS: VANCOMYCIN 1.25 GM/250 ML BAG 1.25 GM in Premix Bag 1 BAG IVPB SCH (20:21)
[2020-04-05 22:13] LABS: ALT (SGPT) 2295 U/L (8-55); AST (SGOT) 2311 U/L (5-34); Albumin 2.6 g/dL (3.4-4.8); Alkaline Phosphatase 110 U/L (40-110); Anion Gap 13 mmol/L (10-20); BUN (Urea Nitrogen) 31 mg/dL (9.8-20.1); Bilirubin, Total 0.6 mg/dL (0.2-1.2); Calc. Creatinine Clearance 55 mL/min (70-130); Calcium 6.9 mg/dL (7.8-10.44); Carbon Dioxide 23 mmol/L (23-31); Chloride 97 mmol/L (98-107); Glucose 172 mg/dL (80-115); Potassium 3.5 mmol/L (3.5-5.1); Protein, Total 4.6 g/dL (5.8-8.1); Sodium 129 mmol/L (136-145)
[2020-04-06] MEDS ORDERED: Atropine Sulfate 1 mg/10 ml Syringe ONE (06:55)
[2020-04-06] MEDS: methylPREDNISolone Sod Succ 40 MG VIAL IVP SCH ×3 (07:34→19:59)
--- NOTE | 2020-04-06 09:39 | PDOC.HOSPP ---
- Subjective Encounter Date: 04/06/20 Encounter Time: 09:37 Subjective: Ms. Hunt was seen today in follow-up of respiratory failure and overdose. She has been agitated again today. She remains on the ventilator. It was noted that she has some dark material from the NG tube. - Objective Vital Signs & Weight: Vital Signs (12 hours) Temp Pulse Resp BP Pulse Ox 04/06/20 08:17 64 152/74 H 04/06/20 08:00 27 H 04/06/20 07:34 98 04/06/20 07:00 98.8 F 04/06/20 00:12 53 L 20 100 04/06/20 00:00 20 04/05/20 22:00 20 Weight Admit Weight 165 lb 5.547 oz Weight 169 lb 12.095 oz Most Recent Monitor Data Heart Rate from ECG 67 NIBP 164/75 NIBP BP-Mean 104 Respiration from ECG 15 SpO2 100 I&O: 04/05/20 04/06/20 04/07/20 06:59 06:59 06:59 Intake Total 1172.5 1977 Output Total 730 1575 275 Balance 442.5 402 -275 Result Diagrams: 04/05/20 03:34 04/05/20 21:45 Hospitalist ROS - Medication Medications: Active Medications Generic Name Dose Route Start Last Admin Trade Name Freq PRN Reason Stop Dose Admin Albuterol/Ipratropium 3 ml 04/05/20 13:00 04/06/20 08:09 Ipratropium/Albuterol Sulfate 3 Ml Neb NEB 3 ml [id number] CATHERINE Administration Fentanyl 100 mls @ 0 mls/hr 04/04/20 16:00 04/05/20 22:59 Fentanyl Cadd IV 05/04/20 16:00 100 mls INF CATHERINE Administration Protocol Per Protocol Vancomycin HCl 1.25 gm/ Device 250 mls @ 166.667 mls/hr 04/05/20 20:00 04/05/20 20:21 IVPB 250 mls 2000 CATHERINE Administration Sodium Chloride 1,000 mls @ 75 mls/hr 04/05/20 10:30 04/05/20 23:05 Normal Saline 0.9% IV 1,000 mls .[id number] CATHERINE Administration Lorazepam 2 mg 04/04/20 20:15 04/05/20 21:39 Lorazepam 2 Mg/Ml Vial SLOW IVP 05/04/20 20:15 2 mg Q1H PRN Administration Breakthrough agitation Propofol 1,000 mg 04/04/20 20:15 04/05/20 20:24 Propofol 1,000 Mg/100 Ml Vial IV 05/04/20 20:15 1,000 mg INF PRN Administration TO ACHIEVE GOAL RASS Protocol Hospitalist Exam Vitals: Vital Signs (12 hours) Temp Pulse Resp BP Pulse Ox 04/06/20 08:17 64 152/74 H 04/06/20 08:00 27 H 04/06/20 07:34 98 04/06/20 07:00 98.8 F 04/06/20 00:12 53 L 20 100 04/06/20 00:00 20 04/05/20 22:00 20 Weight Admit Weight 165 lb 5.547 oz Weight 169 lb 12.095 oz Most Recent Monitor Data Heart Rate from ECG 67 NIBP 164/75 NIBP BP-Mean 104 Respiration from ECG 15 SpO2 100 General Appearance: NAD Eye: PERRL, anicteric sclera Heart: RRR, no murmur, no gallops, no rubs, normal peripheral pulses Respiratory: CTAB, no wheezes, no rales, no ronchi, normal chest expansion, no tachypnea Gastrointestinal: soft, non-tender, non-distended, normal bowel sounds, no palpable masses Extremities: no cyanosis, no edema Hosp A/P (1) Overdose Code(s): T50.901A - POISONING BY UNSP DRUG/MEDS/BIOL SUBST, ACCIDENTAL, INIT Status: Acute (2) Polysubstance abuse Code(s): F19.10 - OTHER PSYCHOACTIVE SUBSTANCE ABUSE, UNCOMPLICATED Status: Acute (3) Throat cancer Code(s): C14.0 - MALIGNANT NEOPLASM OF PHARYNX, UNSPECIFIED Status: Acute (4) Hypothyroidism Code(s): E03.9 - HYPOTHYROIDISM, UNSPECIFIED Status: Chronic (5) Hypertension Code(s): I10 - ESSENTIAL (PRIMARY) HYPERTENSION Status: Chronic (6) Respiratory failure with hypoxia Code(s): J96.91 - RESPIRATORY FAILURE, UNSPECIFIED WITH HYPOXIA Status: Acute (7) Hepatitis Status: Acute - Plan * Acute respiratory failure due to poly-substance abuse- it is unclear if this was an intentional or unintentional overdose. Continue ventilator support * Elevated Liver enzymes- improving. However still elevated- will check an INR to see what her synthetic function is. Will also consult GI, given the possibility of a GI bleed. Her CBC is still pending * Will add IV Protonix * Will check a PT/INR to help calculate a Discriminant Function - However she is already on Methyprednisolone * Continue Mucomyst for now * Hypothyroidism- she appears clinically euthyroid * HTN- blood pressure is elevated- but this may be due to agitation- will add Labetolol as needed * Defer other management to [facility]
[2020-04-06] MEDS ORDERED: Labetalol HCl 100 MG/20 ML VIAL SLOW IVP PRN (09:41)
--- NOTE | 2020-04-06 09:48 | PRG ---
DATE OF SERVICE: SUBJECTIVE: Lupe Hunt is a 59-year-old female, intubated on the vent, very encephalopathic, trying to get up the bed off sedation. OBJECTIVE: VITAL SIGNS: Pulse 64, blood pressure 150/74, sats 99%, 45% FiO2, temperature 98. CHEST: No wheezing, no crackles. CARDIAC: Normal S1, S2. No gallops. ABDOMEN: No masses. LABORATORY DATA: Creatinine 1.3. BUN is 31, slightly elevated. Liver function markedly elevated, AST is 2311 and ALT is 229. Tylenol level is less than 6. Hepatitis profile is negative. ASSESSMENT: Respiratory failure, encephalopathy, head and neck cancer, tobacco abuse. PLAN: Hold sedation to assess neurological status. We will continue steroids and empiric antibiotics adjusted for renal failure. Neb treatments. We will follow. One-half hour of critical care time. Job ID: [id number]
--- NOTE | 2020-04-06 10:22 | ULT ---
ABDOMINAL ULTRASOUND: DATE: 04/06/2020. COMPARISON: None. HISTORY: Elevated liver function tests. TECHNIQUE: Multiplanar, boyce scale, sonographic imaging of the abdomen provided. FINDINGS: The imaged pancreas is unremarkable. The distal body and tail are obscured by bowel gas. The imaged IVC and aorta appear grossly unremarkable, partially obscured by bowel gas. No discrete focal liver lesion or intrahepatic biliary dilatation is noted. There is a probable smal l right pleural effusion. The hepatic parenchyma is mildly heterogeneous which may signify a degree of hepatocellular disease. No gallbladder wall thickening or pericholecystic fluid. No gallstones are noted. The common bile duct measures approximately 7 mm in transverse dimension, which is slightly prominent for a patient of this age. The right kidney measures 11.9 cm in craniocaudal dimension and demonstr ates no evidence for a stone, hydronephrosis, or mass. The spleen is vaguely visualized secondary to obscuration by bowel gas and measures up to 10.3 cm. Detailed assessment of the left kidney is limited secondary to shadowing from bowel gas. The left ki dney measures approximately 10.2 cm in craniocaudal dimension and demonstrates no hydronephrosis. The staff research scientist reports a negative Seay's sign. IMPRESSION: 1. No evidence for cholelithiasis or cholecystitis. 2. Common bile duct upper limits of normal in size. Correlation with LFTs advised. 3. Probable small right pleural effusion. POS: [facility]
[2020-04-06] MEDS ORDERED: DC Sedation Protocol FS ONE (10:52)
--- NOTE | 2020-04-06 11:02 | RAD ---
PORTABLE CHEST: Date: 04/06/2020 HISTORY: Respiratory distress. COMPARISON: 04/04/2020 exam. FINDINGS: Endotracheal tube has been removed. NG tube is below the hemidiaphragm. Bibasilar lung changes and pl eural changes in the left base are again noted, but changes in the right base appear slightly increas ed. Right central line is unchanged in position. IMPRESSION: Interval removal of endotracheal tube with slight improvement to the basilar lung change. POS: [facility]
[2020-04-06] MEDS: Cefepime 1 GM in Sodium Chloride 0.9% 100 ML IVPB SCH ×2 (11:09→20:22)
[2020-04-06] MEDS ORDERED: Lorazepam 2 MG/ML VIAL ONE (11:51)
[2020-04-06 11:54] LABS: INR-International Normal Ratio 1.8; Prothrombin Time 20.9 sec (12.0-14.7)
[2020-04-06 11:58] LABS: #Lymphocytes 0.4 thou/uL (1.20-3.40); #Monocytes 0.2 thou/uL (0.11-0.59); #Neutrophils 7.3 thou/uL (1.40-6.50); %Basophils 0.2 % (0.0-1.0); %Eosinophils 0.1 % (0.0-10.0); %Lymphocytes 4.4 % (21.0-51.0); %Monocytes 2.6 % (0.0-10.0); %Neutrophils 92.7 % (42.0-75.0); Hemoglobin 9.8 g/dL (12.0-16.0); Mean Corpuscular HGB CONC 34.1 g/dL (32.0-36.0); Mean Corpuscular Hemoglobin 29.6 pg (27.0-31.0); Mean Corpuscular Volume 86.9 fL (78.0-98.0); Mean Platelet Volume 9.2 fL (7.4-10.4); Platelet Count 69 thou/uL (130-400); RBC Distribution Width 13.9 % (11.5-14.5); Red Blood Cell (RBC) Count 3.31 mill/uL (4.20-5.40); White Blood Cell (WBC) Count 7.9 thou/uL (4.8-10.8)
[2020-04-06] MEDS: Sodium Chloride 0.9% 1,000 ML IV SCH (12:00)
[2020-04-06 12:18] LABS: ALT (SGPT) 2018 U/L (8-55); AST (SGOT) 1254 U/L (5-34); Albumin 2.9 g/dL (3.4-4.8); Alkaline Phosphatase 119 U/L (40-110); Anion Gap 13 mmol/L (10-20); BUN (Urea Nitrogen) 28 mg/dL (9.8-20.1); Bilirubin, Total 0.8 mg/dL (0.2-1.2); Calc. Creatinine Clearance 58 mL/min (70-130); Calcium 7.5 mg/dL (7.8-10.44); Carbon Dioxide 25 mmol/L (23-31); Chloride 99 mmol/L (98-107); Globulin 2.3 g/dL (2.4-3.5); Glucose 115 mg/dL (80-115); Potassium 3.4 mmol/L (3.5-5.1); Protein, Total 5.2 g/dL (5.8-8.1); Sodium 134 mmol/L (136-145)
--- NOTE | 2020-04-06 15:50 | CON ---
DATE OF CONSULTATION: REASON FOR CONSULTATION: Bradycardia. HISTORY OF PRESENT ILLNESS: Ms. Hunt is a 59-year-old woman who recently presented with somnolence. She was difficult to awake. She for throat cancer. No other associated symptoms. She did require intubation. During my visit, she is not cooperative. She appears confused. I was consulted for bradycardia. She was on fentanyl and propofol at that time. There was no change in her blood pressure. Heart rate did slowly down in the 40s and is now resolved. No further episodes of bradycardia were present. She is not on inotropic suppression. PAST MEDICAL HISTORY: CAD, status post stent placement by Dr. oRjelio Middleton, continued tobacco abuse, bronchitis, hypothyroidism, hypertension, , shoulder surgery. SOCIAL HISTORY: Positive tobacco use. HOME MEDICATIONS: Include; 1. Temazepam. 2. Pravastatin. 3. Omeprazole. 4. Lisinopril. 5. Synthroid. 6. Ismo. 7. Hydrocodone. 8. Lasix. 9. Flexeril. 10. Plavix. 11. Coreg. 12. Aspirin. 13. Xanax. ALLERGIES: MORPHINE. REVIEW OF SYSTEMS: Difficult to obtain. PHYSICAL EXAMINATION: GENERAL: She is currently intubated and sedated. VITAL SIGNS: Blood pressure 120/70, pulse 80, respirations 20. NEUROLOGIC: The patient is alert and oriented x3 with no focal neurologic deficits. HEENT: Sclerae without icterus. Mouth has moist mucous membranes with normal pallor. NECK: No JVD. Carotid upstroke brisk. No bruits bilaterally. LUNGS: Clear to auscultation with unlabored respirations. BACK: No scoliosis or kyphosis. CARDIAC: Regular rate and rhythm with normal S1 and S2. No S3 or S4 noted. No significant rubs, murmurs, thrills, or gallops noted throughout the precordium. PMI is not displaced. There is no parasternal heave. ABDOMEN: Soft, nontender, nondistended. No peritoneal signs present. No hepatosplenomegaly. No abnormal striae. EXTREMITIES: 2+ femoral and 2+ dorsalis pedis pulses. No cyanosis, clubbing, or edema. SKIN: No gross abnormalities. IMPRESSION: Bradycardia. RECOMMENDATIONS: The patient will have transient episode of bradycardia at present. She appears to be currently stable. She does have a pacemaker which will be interrogated. A functioning normally bradycardia could occur from a secondary cause such as acidosis. She does have underlying encephalopathy. We will ask interrogate. Job ID: [id number]
[2020-04-06 19:06] LABS: Vancomycin, Trough 12.9 ug/mL
[2020-04-06] MEDS: VANCOMYCIN 1.25 GM/250 ML BAG 1.25 GM in Premix Bag 1 BAG IVPB SCH (20:00)
[2020-04-06] MEDS: Pantoprazole 40 MG VIAL IVP SCH (20:00)
[2020-04-06] MEDS ORDERED: Phytonadione 10 MG/ML AMP SLOW IVP SCH (22:45)
--- NOTE | 2020-04-07 01:36 | CON ---
DATE OF CONSULTATION: 04/06/2020 REASON: Elevation of liver profile. HISTORY: Ms. Hunt is a 59-year-old female, who was brought in by EMS 2 days ago when she was found unresponsive and unconscious at home. She has polysubstance overdose. She has a history of laryngeal cancer, who has been receiving radiation therapy. In reviewing her medical records, the patient was hypotensive with respiratory failure, which necessitated immediate intubation and initiation of pressor support. The patient has been on Levophed in the ICU earlier today. She has been since then extubated. On arrival, her liver enzymes were elevated with AST over 3500 and ALT 2629. However, there has been trending downward of the liver enzymes. Her bilirubin has remained normal. Her PT is 20.9 seconds with an INR of 1.8. The patient was extubated today. However, she appears to be very confused and agitated requiring 4-point restrain. It is not known whether she has any underlying liver disease or previous liver disease. There is no known history of any alcohol consumption. On admission, her acetaminophen level was low. However, Mucomyst therapy was initiated. Since extubation, there has been no nausea or vomiting. There have been no signs of overt bleeding such as melena, hematochezia, or rectal bleeding. PAST MEDICAL HISTORY: 1. Laryngeal cancer, undergoing radiation treatment. 2. Coronary artery disease. 3. Hypothyroidism. 4. Hypertension. 5. Status post shoulder surgery. 6. . 7. Pacemaker placement. SOCIAL HISTORY: The patient is , a chronic smoker, unknown alcohol consumption. FAMILY HISTORY: Not known, cannot obtain tonight and none per chart. REVIEW OF SYSTEMS: Not reliably obtained. PHYSICAL EXAMINATION: VITAL SIGNS: Temperature is 98.9, blood pressure 176/93, pulse of 91. GENERAL: She is mildly agitated, but attempts to answer questions. She is not oriented to place and time. HEENT: Shows anicteric sclerae. There is bilateral erythema and spider telangiectasia on her face. NECK: Supple. CV: Shows normal S1, S2. Regular rate and rhythm. CHEST: Shows breath sounds clear to auscultation. ABDOMEN: Mildly protuberant, but soft. No distention. No tympany. Hepatomegaly is not appreciated. There is no splenomegaly. She has active bowel sounds. EXTREMITIES: Show trace pedal edema. LABORATORY DATA: Her WBC is 7.9, hemoglobin 9.8, and platelet count of 69. Her PT is 20.9 seconds, INR 1.8. Electrolytes within normal range. Creatinine 1.23. Her bilirubin is 0.8, AST decreased from greater than 3500 to 1254, ALT 2629 down to 2018, alkaline phosphatase 119, and albumin 2.9. Drug screen positive for opiate, tricyclics, benzodiazepine, and cannabinoids. There is a low level of acetaminophen on admission. Alcohol was negative. Ultrasound performed earlier today showed a heterogeneous liver parenchyma without any focal mass or lesion. Common bile duct measures 7 mm. No other acute findings. ASSESSMENT: 1. The patient admitted for overdose causing respiratory failure, altered mentation, and hypotension requiring intubation. She has been extubated since then. Pressure support was used initially, but now her vitals are stable. Off pressor. 2. Severe elevation of the liver enzymes with normal bilirubin. Degree of elevation is suggestive of shock liver. This is likely from her initial hypotension as she required pressure support at the beginning of her hospitalization. Her synthetic liver function appears to be generally intact to mildly impaired with slight elevation of pro time. She may have underlying liver disease/cirrhosis given her thrombocytopenia. However, there is trending downward of her liver enzymes, which suggests a high likelihood of good recovery of her liver insult. The patient was given Mucomyst, which was an excellent idea. RECOMMENDATION: 1. We will start vitamin K .. 2. Check serum ammonia given her current mental status. 3. Continue to trend her liver profile. 4. Anticipate good recovery of her liver as there does not appear to be any complication or worsening of her liver function. 5. We will follow. Job ID: [id number] [facility]
[2020-04-07 04:09] LABS: INR-International Normal Ratio 1.7
[2020-04-07 04:26] LABS: ALT (SGPT) 1391 U/L (8-55); AST (SGOT) 473 U/L (5-34); Albumin 2.9 g/dL (3.4-4.8); Alkaline Phosphatase 103 U/L (40-110); Anion Gap 15 mmol/L (10-20); BUN (Urea Nitrogen) 26 mg/dL (9.8-20.1); Bilirubin, Total 0.9 mg/dL (0.2-1.2); Calc. Creatinine Clearance 62 mL/min (70-130); Calcium 7.5 mg/dL (7.8-10.44); Carbon Dioxide 23 mmol/L (23-31); Chloride 103 mmol/L (98-107); Globulin 2.2 g/dL (2.4-3.5); Glucose 120 mg/dL (80-115); Protein, Total 5.1 g/dL (5.8-8.1); Sodium 138 mmol/L (136-145)
[2020-04-07 04:30] LABS: #Lymphocytes 0.3 thou/uL (1.20-3.40); #Monocytes 0.2 thou/uL (0.11-0.59); #Neutrophils 5.1 thou/uL (1.40-6.50); %Eosinophils 0.1 % (0.0-10.0); %Lymphocytes 4.6 % (21.0-51.0); %Monocytes 4.2 % (0.0-10.0); %Neutrophils 91.1 % (42.0-75.0); Hemoglobin 8.5 g/dL (12.0-16.0); Mean Corpuscular HGB CONC 33.4 g/dL (32.0-36.0); Mean Corpuscular Hemoglobin 29.7 pg (27.0-31.0); Mean Platelet Volume 9.1 fL (7.4-10.4); Platelet Count 44 thou/uL (130-400); Red Blood Cell (RBC) Count 2.86 mill/uL (4.20-5.40); White Blood Cell (WBC) Count 5.6 thou/uL (4.8-10.8)
[2020-04-07] MEDS ORDERED: Thiamine HCl 200 MG/2 ML VIAL IM SCH (04:30)
[2020-04-07] MEDS: Sodium Chloride 0.9% 1,000 ML IV SCH ×2 (04:31→21:06)
[2020-04-07] MEDS ORDERED: Potassium Chloride 20 MEQ/100 ML PREMIX BAG IVPB SCH (07:45)
--- NOTE | 2020-04-07 08:22 | RAD ---
PORTABLE CHEST: Date: 04/07/2020 HISTORY: ICU follow-up. COMPARISON: 04/06/2020. FINDINGS: Left side effusion with left basilar infiltrate and consolidation. Lung joe otherwise appear clear and unchanged. Central line unchanged. AICD leads unchanged. NG tube appears to have been removed. IMPRESSION: No acute change in the chest. POS: [facility]
--- NOTE | 2020-04-07 08:56 | PDOC.HOSPP ---
- Subjective Encounter Date: 04/07/20 Encounter Time: 08:54 Subjective: Ms. Hunt was seen today in follow-up of overdose, and respiratory failure. She is now extubated, but is confused. Her and son have informed the nursing staff that she is a heavy drinker. - Objective Vital Signs & Weight: Vital Signs (12 hours) Pulse Resp Pulse Ox 04/07/20 08:14 100 04/07/20 07:05 67 19 100 Weight Admit Weight 165 lb 5.547 oz Weight 187 lb 6.287 oz Most Recent Monitor Data Heart Rate from ECG 65 NIBP 154/84 NIBP BP-Mean 107 Respiration from ECG 15 SpO2 98 I&O: 04/06/20 04/07/20 04/08/20 06:59 06:59 06:59 Intake Total 1977 1249.4 Output Total 1575 1800 160 Balance 402 -550.6 -160 Result Diagrams: 04/07/20 03:30 04/07/20 03:30 Hospitalist ROS - Medication Medications: Active Medications Generic Name Dose Route Start Last Admin Trade Name Freq PRN Reason Stop Dose Admin Albuterol/Ipratropium 3 ml 04/05/20 13:00 04/07/20 07:05 Ipratropium/Albuterol Sulfate 3 Ml Neb NEB 3 ml [id number] CATHERINE Administration Vancomycin HCl 1.25 gm/ Device 250 mls @ 166.667 mls/hr 04/05/20 20:00 04/06/20 20:00 IVPB 250 mls 2000 CATHERINE Administration Sodium Chloride 1,000 mls @ 75 mls/hr 04/05/20 10:30 04/07/20 04:31 Normal Saline 0.9% IV 1,000 mls .[id number] CATHERINE Administration Cefepime HCl 1 gm/ Sodium 100 mls @ 200 mls/hr 04/06/20 09:00 04/06/20 20:22 Chloride IVPB 100 mls Q12HR CATHERINE Administration Dexmedetomidine HCl 400 mcg/ 100 mls @ 0 mls/hr 04/06/20 17:30 04/06/20 18:21 Sodium Chloride IVPB 100 mls INF CATHERINE Administration Protocol Titrate Methylprednisolone Sodium Succinate 40 mg 04/06/20 09:00 04/06/20 19:59 Methylprednisolone Sod Succ 40 Mg Vial IVP 40 mg BID CATHERINE Administration Pantoprazole Sodium 40 mg 04/06/20 21:00 04/06/20 20:00 Pantoprazole 40 Mg Vial IVP 40 mg Q12HR CATHERINE Administration Sodium Chloride 10 ml 04/06/20 21:00 04/06/20 20:01 Flush - Normal Saline 10 Ml Syringe IVF 10 ml Q12HR CATHERINE Administration Hospitalist Exam Vitals: Vital Signs (12 hours) Pulse Resp Pulse Ox 04/07/20 08:14 100 04/07/20 07:05 67 19 100 Weight Admit Weight 165 lb 5.547 oz Weight 187 lb 6.287 oz Most Recent Monitor Data Heart Rate from ECG 65 NIBP 154/84 NIBP BP-Mean 107 Respiration from ECG 15 SpO2 98 General Appearance: NAD, awake alert Eye: PERRL, anicteric sclera Heart: RRR, no murmur, no gallops, no rubs, normal peripheral pulses Respiratory: no rales, no ronchi, wheezes Gastrointestinal: soft, non-tender, non-distended, normal bowel sounds, no palpable masses, no hepatomegaly Extremities: no cyanosis (+ palpable pulses bilaterally, no lesions), no edema Hosp A/P (1) Overdose Code(s): T50.901A - POISONING BY UNSP DRUG/MEDS/BIOL SUBST, ACCIDENTAL, INIT Status: Acute (2) Polysubstance abuse Code(s): F19.10 - OTHER PSYCHOACTIVE SUBSTANCE ABUSE, UNCOMPLICATED Status: Acute (3) Throat cancer Code(s): C14.0 - MALIGNANT NEOPLASM OF PHARYNX, UNSPECIFIED Status: Acute (4) Hypothyroidism Code(s): E03.9 - HYPOTHYROIDISM, UNSPECIFIED Status: Chronic (5) Hypertension Code(s): I10 - ESSENTIAL (PRIMARY) HYPERTENSION Status: Chronic (6) Respiratory failure with hypoxia Code(s): J96.91 - RESPIRATORY FAILURE, UNSPECIFIED WITH HYPOXIA Status: Acute (7) Hepatitis Status: Acute - Plan * Acute respiratory failure due to poly-substance abuse- it is unclear if this was an intentional or unintentional overdose. She is now extubated * Elevated Liver enzymes-likely from shock liver- improving * Encephalopathy- likely from alcohol abuse, she has been placed on the ASE protocol * Continue Protonix * Agree with Vitamin K to help with coagulopathy * COPD- will add Dulera * Hypothyroidism- she appears clinically euthyroid- will re-start Levothyroxine, but will need to clarify the dose * HTN- blood pressure is a bit improved * Continue to monitor in the IMCU
--- NOTE | 2020-04-07 09:10 | PRG ---
DATE OF SERVICE: 04/07/2020 SUBJECTIVE: Ms. Hunt is recently extubated. No current complaints. Her heart rate does dip down in the 40s if she becomes apneic. She does have a sleep apnea. Otherwise, heart rate appear stable. ICD was interrogated yesterday. Appears to be functioning normally. She does have a single lead set at 40 beats per minute. OBJECTIVE: VITAL SIGNS: Blood pressure 154/84, pulse 60, respirations 20. LUNGS: Rhonchi, rales bilaterally. HEART: Regular rate and rhythm. ABDOMEN: Soft, nontender, nondistended. EXTREMITIES: No edema. PERTINENT LABORATORY DATA: Hemoglobin 8.5, hematocrit 25.5. IMPRESSION: 1. Bradycardia. 2. Status post implantable cardioverter defibrillator. 3. Coronary artery disease. 4. Status post stent placement. RECOMMENDATIONS: It appears Ms. Hunt's ICD is functioning normally. At this point, there does not appear to be significant clinical consequence. She does have heart rates in the 40s when she becomes apneic. At this point, continue to monitor closely. Would not recommend any further changes in her ICD unless she becomes symptomatic. Otherwise, we will follow peripherally. Please re-consult if needed. Job ID: [id number]
[2020-04-07] MEDS: Folic Acid 1 MG TAB PO SCH (09:48)
[2020-04-07] MEDS: Multivitamin W/ Minerals 1 TAB PO SCH (09:48)
[2020-04-07] MEDS: Cefepime 1 GM in Sodium Chloride 0.9% 100 ML IVPB SCH ×2 (09:48→21:05)
[2020-04-07] MEDS: Pantoprazole 40 MG VIAL IVP SCH ×2 (09:48→21:07)
[2020-04-07] MEDS: methylPREDNISolone Sod Succ 40 MG VIAL IVP SCH ×2 (09:48→21:07)
--- NOTE | 2020-04-07 09:59 | PRG ---
DATE OF SERVICE: 04/07/2020 SUBJECTIVE: Lupe Hunt is a 59-year-old female, remains in the ICU, still encephalopathic. OBJECTIVE: VITAL SIGNS: Temperature 97, saturations are 100% on 2 L, pulse 80, respirations 18, blood pressure 130/80. CHEST: Rhonchi and crackles. No wheezing. CARDIAC: Normal S1. ABDOMEN: No masses. LABORATORY DATA: Pertinent for hemoglobin and hematocrit of 8 and 25, white count 5000. Creatinine 1.4, BUN 26. Liver function improved. ASSESSMENT: 1. Status post respiratory failure, status post shock with abnormal liver function, slowly getting better. 2. Azotemia. 3. Vocal cord cancer. 4. Encephalopathy. 5. Chronic obstructive pulmonary disease. PLAN: She is on Demadex, PT, supportive care. Diet ordered. Continue monitoring in the ICU. One-half hour of critical care time. Job ID: [id number]
--- NOTE | 2020-04-07 11:14 | CON ---
DATE OF CONSULTATION: REASON FOR CONSULTATION: Laryngeal cancer. HISTORY OF PRESENT ILLNESS: A 59-year-old female with stage III laryngeal cancer, currently on chemotherapy and radiation with single agent cisplatin, presenting to the hospital with respiratory failure and severe liver damage. The patient was admitted to the ICU and intubated and her AST and ALT were found to be in the thousands and AST greater than 3500 and ALT of 2629. Her toxicology screen was positive for low level of Tylenol. She had opiates, tricyclics, benzodiazepines, and cannabinoids in her toxicology screen and her states that she has continued to be a heavy drinker though her alcohol level was not elevated on admission. She was severely hypotensive and required vasopressor support as well. It was thought that her overdose and her hypertension all contributed to a shock liver process. She has also received antibiotics and was COVID negative. She has anemia and thrombocytopenia secondary to her chemo, but white blood cells are normal. She has since been extubated and off vasopressor support and her liver function has dramatically improved. She has been evaluated by Cardiology and her pacemaker is currently functioning appropriately. She is seen at the bedside and is alert and awake, but is not oriented to place or time and does not understand that she is not in the hospital. I called and discussed the case with her as well. REVIEW OF SYSTEMS: 10-point review of systems unable to be obtained due to patient's mental status. ALLERGIES: MORPHINE. CURRENT MEDICATIONS: Reviewed. PAST MEDICAL HISTORY: Laryngeal cancer, [place], had pacemakers and an AICD placed, hypertension, high cholesterol, anxiety, and depression. PAST SURGICAL HISTORY: Hysterectomy and bilateral oophorectomy, shoulder surgery, pacemaker implantation, and cardiac stent. FAMILY HISTORY: Ovarian cancer in her mother, lung cancer in her brother, and biliary cancer in her family PHYSICAL EXAMINATION: VITAL SIGNS: She is satting 100% on 5 L by nasal cannula, blood pressure 154/84, heart rate of 65, and respiratory rate of 15. GENERAL: She is lying in bed, in mild distress. CARDIOVASCULAR: Regular rate and rhythm. RESPIRATIONS: Nonlabored. ABDOMEN: Soft and nondistended. NEUROLOGICAL: Cranial nerves 2 through 12 are grossly intact and she moves all extremities. PSYCHIATRIC: Awake, agitated, and not oriented to person, time, and she is currently in four-point restraints. LABORATORY DATA: White blood cells 5.6, hemoglobin 8.5, platelets 44. AST 2297 on admission up to greater than 3500, currently 473; ALT as high as 2629, currently 1391, bilirubin never elevated. COVID test negative. Tox screen; low level of Tylenol, opiates, tricyclics, benzos, and cannabinoids. ASSESSMENT AND PLAN: 59-year-old female with laryngeal cancer on cisplatin with concurrent radiation, presenting to the hospital with acute respiratory failure and shock status post mechanical ventilation and vasopressor support, currently extubated and off vasopressors, also with shock liver, which is currently improving and drug overdose, alcohol withdrawal. She is showing a dramatic improvement but is still disoriented and requiring restraint. She is on alcohol withdrawal protocol. We will continue monitoring her and withholding chemotherapy. When she is more oriented and able to be taken off restraints, if her liver continues to improve, she can potentially restart radiation even while in the hospital. Job ID: [id number] MTDD
[2020-04-07 13:28] LABS: Magnesium 1.7 mg/dL (1.6-2.6); Potassium 3.2 mmol/L (3.5-5.1)
--- NOTE | 2020-04-07 19:36 | PRG ---
DATE OF SERVICE: 04/07/2020 SUBJECTIVE: The patient is feeling well, having no problems and wants to go home. OBJECTIVE: VITAL SIGNS: Blood pressure 155/85, pulse 76, respiratory rate 12, temperature 98.9. CHEST: Clear. CARDIOVASCULAR: Regular rate and rhythm. ABDOMEN: Soft and nontender without organomegaly or masses. LABORATORY DATA: Shows a PT of 20.0 with an INR of 1.7. Chemistries show AST of 473, ALT of 1391, ammonia of 48. ASSESSMENT: 1. Shock liver-improving. 2. Respiratory failure-resolved. 3. Laryngeal cancer. RECOMMENDATIONS: 1. Continue to follow LFTs. I suspect these will resolve completely quickly. 2. We will sign off. Job ID: [id number]
[2020-04-07] MEDS: Mometasone 100 MCG/Formoterol 5 MCG 120 PUFF INHALER INH SCH (19:47)
[2020-04-08 01:13] LABS: Anion Gap 14 mmol/L (10-20); BUN (Urea Nitrogen) 26 mg/dL (9.8-20.1); Calc. Creatinine Clearance 77 mL/min (70-130); Calcium 7.6 mg/dL (7.8-10.44); Carbon Dioxide 22 mmol/L (23-31); Chloride 105 mmol/L (98-107); Glucose 130 mg/dL (80-115); Magnesium 1.6 mg/dL (1.6-2.6); Sodium 138 mmol/L (136-145)
[2020-04-08 01:20] LABS: Potassium 2.8 mmol/L (3.5-5.1)
[2020-04-08] MEDS ORDERED: Electrolyte Replacement Protocol FS PRN (01:45)
[2020-04-08] MEDS ORDERED: Potassium Chloride 20 MEQ TAB PO SCH (02:00)
[2020-04-08] MEDS ORDERED: Magnesium 2 GM/50 ML 2 GM in Premix Bag 1 BAG IVPB SCH ×2 (02:00→08:30)
[2020-04-08] MEDS ORDERED: ALPRAZolam 0.5 MG TAB PO SCH (02:15)
[2020-04-08] MEDS: Potassium Chloride 40 MEQ in Premix Bag 1 BAG IVPB SCH ×2 (02:18→05:38)
[2020-04-08 04:49] LABS: INR-International Normal Ratio 1.5; Prothrombin Time 18.4 sec (12.0-14.7)
[2020-04-08] MEDS: Levothyroxine Sodium 88 MCG TAB PO SCH (05:56)
[2020-04-08] MEDS: Mometasone 100 MCG/Formoterol 5 MCG 120 PUFF INHALER INH SCH ×2 (07:30→19:47)
--- NOTE | 2020-04-08 08:01 | RAD ---
Portable frontal chest radiograph: 04/08/2020 COMPARISON: 04/07/2020 HISTORY: Ventilated patient FINDINGS: No endotracheal tube present. Stable right vascular catheter and transvenous AICD. Stable p ulmonary vascular congestion with linear density in the perihilar regions and both lung bases. Stable right basilar airspace disease, dense consolidation within the left base, and bilateral pleura l effusions, left greater than right. IMPRESSION: Stable appearance of the chest as described above.
[2020-04-08] MEDS: Potassium Chloride 40 MEQ in Sodium Chloride 0.9% 250 ML 250 ML IVPB SCH ×2 (08:57→14:00)
[2020-04-08] MEDS: methylPREDNISolone Sod Succ 40 MG VIAL IVP SCH (08:57)
[2020-04-08] MEDS: Pantoprazole 40 MG VIAL IVP SCH (08:57)
[2020-04-08] MEDS: Cefepime 1 GM in Sodium Chloride 0.9% 100 ML IVPB SCH (08:58)
[2020-04-08] MEDS: ALPRAZolam 1 MG TAB PO SCH ×2 (08:58→20:41)
[2020-04-08] MEDS: Magnesium Oxide 400 MG TAB PO SCH (08:58)
[2020-04-08] MEDS: Folic Acid 1 MG TAB PO SCH (08:58)
[2020-04-08] MEDS: Thiamine 100 MG TAB PO SCH (08:58)
[2020-04-08] MEDS: Multivitamin W/ Minerals 1 TAB PO SCH (08:59)
[2020-04-08] MEDS ORDERED: Cepastat Lozenges 1 LOZ PO PRN (09:43)
--- NOTE | 2020-04-08 09:56 | PDOC.HOSPP ---
- Subjective Encounter Date: 04/08/20 Encounter Time: 09:55 Subjective: Ms. Hunt was seen today in follow-up of altered mental status due to drug overdose, and alcohol abuse. She is much better. She is back to her baseline. Her is at the bedside. - Objective Vital Signs & Weight: Vital Signs (12 hours) Temp Pulse Resp BP Pulse Ox 04/08/20 07:55 100 04/08/20 07:31 99 04/08/20 07:28 58 L 20 98 04/08/20 07:00 97.9 F 04/08/20 04:00 98.3 F 04/08/20 00:47 68 167/100 H 04/08/20 00:00 98.6 F 98 04/07/20 23:25 68 16 98 Weight Admit Weight 165 lb 5.547 oz Weight 169 lb 5.04 oz Most Recent Monitor Data Heart Rate from ECG 68 NIBP 135/84 NIBP BP-Mean 101 Respiration from ECG 21 SpO2 99 I&O: 04/07/20 04/08/20 04/09/20 06:59 06:59 06:59 Intake Total 1249.4 2395.5 240 Output Total 1800 1565 Balance -550.6 830.5 240 Result Diagrams: 04/07/20 03:30 04/08/20 00:34 Hospitalist ROS - Medication Medications: Active Medications Generic Name Dose Route Start Last Admin Trade Name Freq PRN Reason Stop Dose Admin Albuterol/Ipratropium 3 ml 04/05/20 13:00 04/08/20 07:28 Ipratropium/Albuterol Sulfate 3 Ml Neb NEB 3 ml [id number] CATHERINE Administration Alprazolam 1 mg 04/08/20 09:00 04/08/20 08:58 Alprazolam 1 Mg Tab PO 1 mg BID CATHERINE Administration Folic Acid 1 mg 04/07/20 09:00 04/08/20 08:58 Folic Acid 1 Mg Tab PO 1 mg DAILY CATHERINE Administration Dexmedetomidine HCl 400 mcg/ 100 mls @ 0 mls/hr 04/06/20 17:30 04/07/20 12:57 Sodium Chloride IVPB 100 mls INF CATHERINE Administration Protocol Titrate Potassium Chloride 40 meq/ 270 mls @ 67.5 mls/hr 04/08/20 09:00 04/08/20 08:57 Sodium Chloride IVPB 02/05/21 16:59 270 mls Q4H CATHERINE Administration Magnesium Sulfate 2 gm/ Device 50 mls @ 50 mls/hr 04/08/20 08:30 04/08/20 08:56 IVPB 04/08/20 12:00 50 mls NOW CATHERINE Administration Iron/Minerals/Multivitamins 1 tab 04/07/20 09:00 04/08/20 08:59 Multivitamin W/ Minerals 1 Tab PO 1 tab DAILY CATHERINE Administration Labetalol HCl 10 mg 04/06/20 09:41 04/08/20 00:47 Labetalol Hcl 100 Mg/20 Ml Vial SLOW IVP 10 mg Q4H PRN Administration SBP GREATER THAN 160 Levothyroxine Sodium 88 mcg 04/08/20 06:00 04/08/20 05:56 Levothyroxine Sodium 88 Mcg Tab PO 88 mcg 0600 CATHERINE Administration Magnesium Oxide 400 mg 04/08/20 09:00 04/08/20 08:58 Magnesium Oxide 400 Mg Tab PO 400 mg DAILY CATHERINE Administration Mometasone Furoate/Formoterol Fumar 1 puff 04/07/20 18:30 04/08/20 07:30 Mometasone 100 Mcg/Formoterol 5 Mcg 120 Puff Inhaler INH 1 puff BID-RT CATHERINE Administration Pantoprazole Sodium 40 mg 04/06/20 21:00 04/08/20 08:57 Pantoprazole 40 Mg Vial IVP 40 mg Q12HR CATHERINE Administration Sertraline HCl 100 mg 04/08/20 09:45 04/08/20 09:53 Sertraline Hcl 100 Mg Tab PO 04/08/20 13:00 100 mg NOW CATHERINE Administration Sodium Chloride 10 ml 04/06/20 21:00 04/08/20 08:59 Flush - Normal Saline 10 Ml Syringe IVF 10 ml Q12HR CATHERINE Administration Thiamine HCl 100 mg 04/08/20 09:00 04/08/20 08:58 Thiamine 100 Mg Tab PO 100 mg DAILY CATHERINE Administration Hospitalist Exam Vitals: Vital Signs (12 hours) Temp Pulse Resp BP Pulse Ox 04/08/20 07:55 100 04/08/20 07:31 99 04/08/20 07:28 58 L 20 98 04/08/20 07:00 97.9 F 04/08/20 04:00 98.3 F 04/08/20 00:47 68 167/100 H 04/08/20 00:00 98.6 F 98 04/07/20 23:25 68 16 98 Weight Admit Weight 165 lb 5.547 oz Weight 169 lb 5.04 oz Most Recent Monitor Data Heart Rate from ECG 68 NIBP 135/84 NIBP BP-Mean 101 Respiration from ECG 21 SpO2 99 Eye: PERRL, anicteric sclera Heart: RRR, no murmur, no gallops, no rubs, normal peripheral pulses Respiratory: no rales, no ronchi, normal chest expansion, wheezes Gastrointestinal: soft, non-tender, non-distended, normal bowel sounds, no palpable masses, no hepatomegaly Extremities: no cyanosis, no edema Hosp A/P (1) Overdose Code(s): T50.901A - POISONING BY UNSP DRUG/MEDS/BIOL SUBST, ACCIDENTAL, INIT Status: Acute (2) Polysubstance abuse Code(s): F19.10 - OTHER PSYCHOACTIVE SUBSTANCE ABUSE, UNCOMPLICATED Status: Acute (3) Throat cancer Code(s): C14.0 - MALIGNANT NEOPLASM OF PHARYNX, UNSPECIFIED Status: Acute (4) Hypothyroidism Code(s): E03.9 - HYPOTHYROIDISM, UNSPECIFIED Status: Chronic (5) Hypertension Code(s): I10 - ESSENTIAL (PRIMARY) HYPERTENSION Status: Chronic (6) Respiratory failure with hypoxia Code(s): J96.91 - RESPIRATORY FAILURE, UNSPECIFIED WITH HYPOXIA Status: Acute (7) Hepatitis Status: Acute - Plan * Acute respiratory failure due to unintentional overdose. She tells me she was not suicidal. She also minimized her alcohol in take as well as her . She had also been taking some Tylenol 3. John haider tells me he places her medications in a medication container each day for her. I have asked her to discuss her medications with Dr. Almeida * Elevated Liver enzymes-likely from shock liver- improving * Encephalopathy-resolved * Continue Protonix * COPD- continue with Dulera and Duonebs * Hypothyroidism- she appears clinically euthyroid-continue Levothyroxine * HTN- blood pressure is a bit improved * She likely can be moved out of the ICU * Hypokalemia, and hypomagnesemia- continue to replace as needed
--- NOTE | 2020-04-08 10:04 | PRG ---
DATE OF SERVICE: 04/08/2020 SUBJECTIVE: Lupe Hunt is a 59-year-old female was extubated yesterday, is doing well. She is less encephalopathic, more appropriate. OBJECTIVE: VITAL SIGNS: O2 saturations 98% on room air, blood pressure 135/81, pulse 87, respiratory rate 18. I's and O's have been good. CHEST: No wheezing, no crackles. CARDIAC: Normal S1, S2. ABDOMEN: No masses. ASSESSMENT: Respiratory failure, abnormal LFT felt to be secondary to hypertension, vocal cord cancer. PLAN: PO medicine. Hopefully home when she is able to ambulate. Job ID: [id number]
[2020-04-08 12:37] LABS: Anion Gap 16 mmol/L (10-20); BUN (Urea Nitrogen) 27 mg/dL (9.8-20.1); Calc. Creatinine Clearance 63 mL/min (70-130); Calcium 7.9 mg/dL (7.8-10.44); Carbon Dioxide 20 mmol/L (23-31); Chloride 106 mmol/L (98-107); Glucose 175 mg/dL (80-115); Potassium 4.1 mmol/L (3.5-5.1); Sodium 138 mmol/L (136-145)
[2020-04-08 14:10] VITALS: BMI 28.1
[2020-04-08] MEDS: Cefdinir 300 MG CAP PO SCH (20:40)
[2020-04-09 04:37] LABS: INR-International Normal Ratio 1.3; Prothrombin Time 16.3 sec (12.0-14.7)
[2020-04-09] MEDS: Levothyroxine Sodium 88 MCG TAB PO SCH (05:10)
[2020-04-09] MEDS: Mometasone 100 MCG/Formoterol 5 MCG 120 PUFF INHALER INH SCH (06:53)
[2020-04-09] MEDS ORDERED: predniSONE 20 MG TAB PO SCH (08:00)
[2020-04-09] MEDS: Multivitamin W/ Minerals 1 TAB PO SCH (08:51)
[2020-04-09] MEDS: Folic Acid 1 MG TAB PO SCH (08:51)
[2020-04-09] MEDS: Cefdinir 300 MG CAP PO SCH (08:51)
[2020-04-09] MEDS: ALPRAZolam 1 MG TAB PO SCH (08:51)
[2020-04-09] MEDS: Magnesium Oxide 400 MG TAB PO SCH (08:51)
[2020-04-09] MEDS: Thiamine 100 MG TAB PO SCH (08:52)
[2020-04-09 11:47] VITALS: BP 178/84; TEMP 97.8
--- NOTE | 2020-04-13 13:18 | EKG ---
Test Reason : Blood Pressure : / mmHG Vent. Rate : 066 BPM Atrial Rate : 066 BPM P-R Int : 182 ms QRS Dur : 084 ms QT Int : 420 ms P-R-T Axes : 070 057 050 degrees QTc Int : 440 ms Normal sinus rhythm Possible Left atrial enlargement Nonspecific T wave abnormality Abnormal ECG Confirmed by AMY OROZCO ([id number]), copy editor ROSALIA BOND ([id number]) on 04/13/2020 1:18:18 PM Referred By: Confirmed By:AMY Nicole
--- NOTE | 2020-04-14 12:50 | PQF ---
CLINICAL DOCUMENTATION CLARIFICATION FORM: Dear : Sreekanth Cao MD Date / Time: 04/14/2020 Please exercise your independent, professional judgment in responding to the clarification form. Clinical indicators are provided on the bottom of this form for your review Please check appropriate box(es) to clarify if the following diagnosis has been ruled in our ruled out: [ ] Ruled in Sepsis [ ] Continue to treat [ ] Resolved [ ] Ruled out Sepsis [ ] Improving [ ] Cannot rule out diagnosis [ ] Other diagnosis (Please specify if any) [ ] Unable to determine In addition, please specify: Present on Admission (POA): [ ] Yes [ ] No [ ] Unable to determine Physician Signature: Date/Time: For continuity of documentation, please document condition throughout progress notes and discharge summary. Thank You. To be completed by CDI/Coding staff for physician review: Present Clinical Indicators - Signs / Symptoms / Labs Results and Location in Medical Record [x] Acute encephalopathy unclear etiology-sepsis/drug induced encephalopathy H&P on 04/04 [x] Possible sepsis H&P on 04/04 [x] Patient hypotensive & hypovolemic with altered mental state H&P on 04/04 [x] Initial concerns possible sepsis & medication overuse H&P on 04/04 Present Risk Factors Results and Location in Medical Record [x] Respiratory failure, VILMA H&P on 04/04 [x] AMS H&P on 04/04 [x] Aged person 59 yrs H&P on 04/04 [ ] Present Treatments Results and Location in Medical Record [x] Vancomycin 1.5gm IV Medication on 04/04 [x] Vancomycin 1.25gm IV Medication from 04/05 to 04/07 [ ] [ ] CDS/Child Support Agent Signature: AAS Phone #: Date/Time: 04/14/2020 This is a permanent part of the Medical Record [facility]
== END 2020-04-09 15:54 | disposition home or self-care (01) | DRG 917 ==
LOC: ERS 14:36 → IMCU/EMU 15:10 → 2NO 04-08 13:15
PROVIDERS: ADMIT Internal Medicine; ATTEND Internal Medicine
PROC: 0D9670Z Drainage of Stomach with Drainage Device, Via Natural or Artificial Opening (ICD-10-PCS; principal; 2020-04-04)
PROC: 0BH17EZ Insertion of Endotracheal Airway into Trachea, Via Natural or Artificial Opening (ICD-10-PCS; 2020-04-04)
PROC: 3E043XZ Introduction of Vasopressor into Central Vein, Percutaneous Approach (ICD-10-PCS; 2020-04-04)
PROC: HZ2ZZZZ Detoxification Services for Substance Abuse Treatment (ICD-10-PCS; 2020-04-04)
PROC: 02HV33Z Insertion of Infusion Device into Superior Vena Cava, Percutaneous Approach (ICD-10-PCS; 2020-04-04)
PROC: 5A1945Z Respiratory Ventilation, 24-96 Consecutive Hours (ICD-10-PCS; 2020-04-04)
DX: T50.901A Poisoning by unspecified drugs, medicaments and biological substances, accidental (unintentional), initial encounter (principal); K72.00 Acute and subacute hepatic failure without coma; J96.01 Acute respiratory failure with hypoxia; E87.1 Hypo-osmolality and hyponatremia; G93.40 Encephalopathy, unspecified; N17.9 Acute kidney failure, unspecified; E87.2 Acidosis; F10.239 Alcohol dependence with withdrawal, unspecified; E03.9 Hypothyroidism, unspecified; F41.9 Anxiety disorder, unspecified; I10 Essential (primary) hypertension; F17.210 Nicotine dependence, cigarettes, uncomplicated; E83.51 Hypocalcemia; C14.0 Malignant neoplasm of pharynx, unspecified; J44.9 Chronic obstructive pulmonary disease, unspecified; R79.89 Other specified abnormal findings of blood chemistry; R00.1 Bradycardia, unspecified; F19.10 Other psychoactive substance abuse, uncomplicated; I25.10 Atherosclerotic heart disease of native coronary artery without angina pectoris; D64.81 Anemia due to antineoplastic chemotherapy; D69.59 Other secondary thrombocytopenia; T45.1X5A Adverse effect of antineoplastic and immunosuppressive drugs, initial encounter; Y92.239 Unspecified place in hospital as the place of occurrence of the external cause; Z20.822 Contact with and (suspected) exposure to COVID-19; Z78.1 Physical restraint status; E87.6 Hypokalemia; E83.42 Hypomagnesemia; Z95.0 Presence of cardiac pacemaker; I25.2 Old myocardial infarction; Z95.5 Presence of coronary angioplasty implant and graft; Z98.890 Other specified postprocedural states; Z88.6 Allergy status to analgesic agent; Z79.82 Long term (current) use of aspirin; Z79.899 Other long term (current) drug therapy; Z92.3 Personal history of irradiation; Z79.890 Hormone replacement therapy; Z79.01 Long term (current) use of anticoagulants; Z90.710 Acquired absence of both cervix and uterus; Z90.722 Acquired absence of ovaries, bilateral; Z80.41 Family history of malignant neoplasm of ovary; Z80.1 Family history of malignant neoplasm of trachea, bronchus and lung
CPT/HCPCS: 0240U; 31500; 36415; 36556; 36600; 51702; 70450; 71045; 77336; 80048; 80053; 80074; 80076; 80143; 80202; 80306; 80307; 81003; 81015; 82140; 82805; 83605; 83735; 84484; 85025; 85610; 86850; 86900; 86901; 87040; 87086; 93005; 93975; 94002; 94003; 94640; 94664; 96365; 96366; 96367; 96375; 99292; C9113; J0132; J0692; J2060; J2704; J2920; J2930; J3010; J3370; J3411; J3430; J3475; J3480; J3490; J7050; J7070; J7512; J7611; J7620

== ENCOUNTER 2020-11-18 13:30 | Outpatient (CLI) | payer BC | END 2020-11-18 13:31 | LOC: BICCT 13:30 | PROVIDERS: ATTEND Internal Medicine Hematology & Oncology | DX: C32.9 Malignant neoplasm of larynx, unspecified (principal); R91.1 Solitary pulmonary nodule; F17.210 Nicotine dependence, cigarettes, uncomplicated | CPT/HCPCS: 71260; 82565 ==

== ENCOUNTER 2023-06-04 09:48 | Inpatient (IN) | payer MEDICARE ==
[2023-06-04] MEDS ORDERED: Electrolyte Replacement Protocol 1 EACH FS ONE (12:37)
[2023-06-04] MEDS ORDERED: LORazepam 2 MG/ML SYR.(CARPUJECT) IVP PRN (13:08)
[2023-06-04] MEDS ORDERED: Morphine 2 MG/ML VIAL SLOW IVP PRN (13:15)
[2023-06-04] MEDS ORDERED: Propofol BOLUS 1,000 MG/100 ML VIAL IV PRN (13:15)
[2023-06-04] MEDS ORDERED: Vancomycin Dose by Levels Sliding Scale (Wt 71-99) FS SCH (13:15)
[2023-06-04] MEDS ORDERED: Fentanyl BOLUS 250 ML IVPB PRN (13:15)
[2023-06-04] MEDS ORDERED: DISCONTINUE PREVIOUS NARCOTIC PAIN MEDICATIONS AND BENZODIAZEPINES FS SCH (13:15)
[2023-06-04] MEDS: Propofol 1,000 MG/100 ML VIAL IV ONE (13:41)
[2023-06-04] MEDS: Ventilator Sedation Protocol 1 EACH FS ONE (13:41)
[2023-06-04] MEDS: Sodium Chloride 0.9% 1,000 ML IV SCH (13:42)
[2023-06-04] MEDS ORDERED: CEFAZOLIN 2 GM in Sodium Chloride 0.9% 100 ML IVPB SCH (14:15)
[2023-06-04] MEDS: Piperacillin/Tazobactam 3.375 GM in Sodium Chloride 0.9% 100 ML IVPB SCH ×2 (14:20→19:15)
[2023-06-04] MEDS ORDERED: Bupivacaine 0.25% HCL 30 ML VIAL ONE (14:20)
[2023-06-04] MEDS ORDERED: EPINEPHrine 1 MG/ML VIAL ONE (14:20)
[2023-06-04 14:35] LABS: #Basophils Less than 0.03 10x3/uL (0.0-0.2); %Basophils 0.1 % (0.0-1.0); %Eosinophils 1.2 % (0.0-10.0); %Lymphocytes 4.8 % (21.0-51.0); %Monocytes 8.8 % (0.0-10.0); %Neutrophils 84.1 % (42.0-75.0); Hematocrit 23.6 % (36.0-47.0); Hemoglobin 7.7 g/dL (12.0-16.0); Mean Corpuscular HGB CONC 32.6 g/dL (32.0-36.0); Mean Corpuscular Hemoglobin 29.6 pg (27.0-31.0); Mean Corpuscular Volume 90.8 fL (78.0-98.0); Mean Platelet Volume 10.3 fL (7.4-10.4); Platelet Count 88 10x3/uL (130-400); RBC Distribution Width 15.9 % (11.5-14.5)
[2023-06-04] MEDS ORDERED: Rocuronium Bromide 10 MG/ML (10ML VIAL) ONE (14:36)
[2023-06-04] MEDS ORDERED: Midazolam HCl 2 mg/2 ml Vial ONE (14:36)
[2023-06-04 14:46] LABS: INR-International Normal Ratio 2.2; PTT 47.9 sec (22.9-36.1); Prothrombin Time 24.6 sec (12.0-14.7)
[2023-06-04] MEDS: Ipratropium/Albuterol 3 ML NEB NEB SCH (14:48)
[2023-06-04] MEDS ORDERED: Ondansetron PF 4 MG/2 ML Vial IVP PRN (18:00)
[2023-06-04] MEDS ORDERED: Ipratropium/Albuterol 3 ML NEB NEB PRN (18:00)
[2023-06-04] MEDS ORDERED: Promethazine HCl 25 MG/ML VIAL IM PRN (18:00)
[2023-06-04] MEDS ORDERED: HYDROcodone/Acetaminophen 5/325 mg Tablet PO PRN (18:00)
[2023-06-04 18:50] LABS: Albumin 2.9 g/dL (3.4-4.8)
[2023-06-04 18:51] LABS: Chloride 100 mmol/L (98-107); Potassium 4.1 mmol/L (3.5-5.1); Sodium 136 mmol/L (136-145)
[2023-06-04 18:52] LABS: Calcium 8.3 mg/dL (7.8-10.44)
[2023-06-04 18:53] LABS: Globulin 1.9 g/dL (2.4-3.5); Glucose 135 mg/dL (80-115); Protein, Total 4.8 g/dL (5.8-8.1)
[2023-06-04 18:54] LABS: Anion Gap 15 mmol/L (10-20); Bilirubin, Total 1.6 mg/dL (0.2-1.2); Carbon Dioxide 25 mmol/L (23-31)
[2023-06-04 18:55] LABS: Alkaline Phosphatase 103 U/L (40-110)
[2023-06-04 18:56] LABS: Calc. Creatinine Clearance 24 mL/min (70-130); Estimated GFR 19
[2023-06-04 18:57] LABS: BUN (Urea Nitrogen) 70 mg/dL (9.8-20.1)
[2023-06-04 18:58] LABS: AST (SGOT) 28 U/L (5-34)
[2023-06-04 18:59] LABS: ALT (SGPT) 13 U/L (8-55)
[2023-06-04] MEDS: CEFAZOLIN 2 GM in Sodium Chloride 0.9% 100 ML IVPB SCH (19:15)
[2023-06-04] MEDS ORDERED: Famotidine 20 MG TAB PO SCH (21:00)
[2023-06-05] MEDS: Levothyroxine Sodium 88 MCG TAB PER TUBE SCH (05:08)
[2023-06-05 05:32] LABS: #Basophils Less than 0.03 10x3/uL (0.0-0.2); %Basophils 0.1 % (0.0-1.0); %Lymphocytes 5.2 % (21.0-51.0); %Monocytes 8.3 % (0.0-10.0); %Neutrophils 84.1 % (42.0-75.0); Hematocrit 21.2 % (36.0-47.0); Hemoglobin 7.2 g/dL (12.0-16.0); Mean Corpuscular Hemoglobin 28.8 pg (27.0-31.0); Mean Corpuscular Volume 84.8 fL (78.0-98.0); Mean Platelet Volume 11.1 fL (7.4-10.4); Platelet Count 95 10x3/uL (130-400); RBC Distribution Width 17.2 % (11.5-14.5)
[2023-06-05 05:36] LABS: Anion Gap 15 mmol/L (10-20)
[2023-06-05 05:39] LABS: BUN (Urea Nitrogen) 70 mg/dL (9.8-20.1); Calc. Creatinine Clearance 25 mL/min (70-130); Calcium 7.9 mg/dL (7.8-10.44); Carbon Dioxide 24 mmol/L (23-31); Chloride 104 mmol/L (98-107); Estimated GFR 19; Glucose 90 mg/dL (80-115); Potassium 3.8 mmol/L (3.5-5.1); Sodium 139 mmol/L (136-145)
[2023-06-05 05:40] LABS: Vancomycin, Trough 23.6 ug/mL
[2023-06-05 06:12] LABS: Anisocytosis SLIGHT = 6-15 cells HPF (0-5); Band 13 % (5-11); Eosinophils 1 % (0-10); Hypochromia SLIGHT = 6-15 cells HPF (0-5); Lymphocytes 5 % (21-51); Metamyelocyte 1 % (0-0); Microcytosis SLIGHT = 6-15 cells HPF (0-5); Monocytes 5 % (0-10); Neutrophil 75 % (42-75); Nucleated RBC (Manual Ct) 1 % (0); Platelet Adequacy Comment Platelets Decreased; Polychromasia SLIGHT = 2-3 cells HPF (0-2)
[2023-06-05 07:27] LABS: Actual Bicarbonate (HCO3a) 23.3 mEq/L (22-28); Base Excess (BEa) -1.3 mEq/L (-2.0 to +3.0); CO2 Tension 38.6 mmHg (35.0-45.0); Calcium, Ionized (arterial) 1.07 mmol/L (1.12-1.30); Carboxyhemoglobin (COHb) 1.5 gm% (0.0-3.0); Hematocrit-ABG 23 % (36.0-47.0); Hemoglobin (Hb) 7.7 g/dL (12.0-16.0); O2 Tension (PaO2), arterial 146.9 mmHg (> 80.0); Potassium - ABG Lab 3.68 mmol/L (3.70-5.30); pH, Arterial 7.399 (7.35-7.45)
[2023-06-05 07:29] LABS: Puncture Site Arterial Line
[2023-06-05] MEDS: NOREPINEPHRINE 8 MG/250 ML-D5W 250 ML IVPB SCH (08:15)
[2023-06-05] MEDS ORDERED: fentaNYL 50 mcg/mL 1 mL Vial SLOW IVP PRN (08:15)
[2023-06-05 08:16] LABS: Hematocrit 20.7 % (36.0-47.0); Hemoglobin 7.1 g/dL (12.0-16.0); Mean Corpuscular HGB CONC 34.3 g/dL (32.0-36.0); Mean Corpuscular Hemoglobin 29.3 pg (27.0-31.0); Mean Corpuscular Volume 85.5 fL (78.0-98.0); Mean Platelet Volume 10.8 fL (7.4-10.4); Platelet Count 80 10x3/uL (130-400); RBC Distribution Width 17.4 % (11.5-14.5); Red Blood Cell (RBC) Count 2.42 mill/uL (4.20-5.40)
[2023-06-05] MEDS: Pantoprazole 40 MG VIAL IVP SCH (08:16)
[2023-06-05] MEDS: Fentanyl CADD 100 ML IV SCH (08:27)
[2023-06-05] MEDS: Albumin 25% 25 GM (100 mL) BOT IVPB SCH (08:39)
[2023-06-05] MEDS: Piperacillin/Tazobactam 3.375 GM in Sodium Chloride 0.9% 100 ML IVPB SCH (12:39)
[2023-06-05 12:47] LABS: Hep A IgM S/CO 0.19 S/CO (0-0.79); Hep C IgG Ab NONREACTIVE S/CO (NonReactive); Hep C Index 0.14 S/CO (0-0.79)
[2023-06-05 13:11] LABS: Hep A IgM AB NonReactive (NonReactive); Hep B Surf Ag Non-Reactive S/CO (NonReactive); Hepatitis B Core IgM Abs NonReactive S/CO (NonReactive)
[2023-06-05] MEDS: Propofol 1,000 MG/100 ML VIAL IV PRN (13:56)
[2023-06-05] MEDS: Dextrose 5 % And 0.9 % NaCl 1,000 ML IV SCH (19:49)
[2023-06-06 04:27] LABS: #Basophils Less than 0.03 10x3/uL (0.0-0.2); %Basophils 0.1 % (0.0-1.0); %Eosinophils 2.9 % (0.0-10.0); %Monocytes 9.2 % (0.0-10.0); %Neutrophils 79.3 % (42.0-75.0); Hematocrit 20.4 % (36.0-47.0); Hemoglobin 6.8 g/dL (12.0-16.0); Mean Corpuscular HGB CONC 33.3 g/dL (32.0-36.0); Mean Corpuscular Hemoglobin 28.8 pg (27.0-31.0); Mean Corpuscular Volume 86.4 fL (78.0-98.0); Mean Platelet Volume 10.3 fL (7.4-10.4); Platelet Count 77 10x3/uL (130-400); RBC Distribution Width 17.5 % (11.5-14.5); Red Blood Cell (RBC) Count 2.36 mill/uL (4.20-5.40)
[2023-06-06 04:33] LABS: Anion Gap 14 mmol/L (10-20)
[2023-06-06 04:35] LABS: BUN (Urea Nitrogen) 68 mg/dL (9.8-20.1); Calc. Creatinine Clearance 24 mL/min (70-130); Carbon Dioxide 22 mmol/L (23-31); Chloride 105 mmol/L (98-107); Estimated GFR 18; Glucose 132 mg/dL (80-115); Potassium 3.7 mmol/L (3.5-5.1); Sodium 137 mmol/L (136-145)
[2023-06-06] MEDS ORDERED: Levothyroxine Sodium 88 MCG TAB PO SCH (06:00)
[2023-06-06 07:00] LABS: Actual Bicarbonate (HCO3a) 24.1 mEq/L (22-28); Base Excess (BEa) -1.8 mEq/L (-2.0 to +3.0); CO2 Tension 46.8 mmHg (35.0-45.0); Calcium, Ionized (arterial) 1.06 mmol/L (1.12-1.30); Carboxyhemoglobin (COHb) 2.1 gm% (0.0-3.0); Hematocrit-ABG 23 % (36.0-47.0); Hemoglobin (Hb) 7.8 g/dL (12.0-16.0); O2 Tension (PaO2), arterial 149.3 mmHg (> 80.0); Potassium - ABG Lab 3.54 mmol/L (3.70-5.30); pH, Arterial 7.329 (7.35-7.45)
[2023-06-06 07:11] LABS: Puncture Site ALINE
[2023-06-06] MEDS: Albumin 25% 25 GM (100 mL) BOT IVPB SCH ×2 (08:07→14:13)
[2023-06-06] MEDS: Furosemide 40 MG (4 mL) VIAL SLOW IVP SCH (08:07)
[2023-06-06 08:13] LABS: Magnesium 1.8 mg/dL (1.6-2.6); Phosphorus 3.7 mg/dL (2.3-4.7)
[2023-06-06 08:15] LABS: ALT (SGPT) 8 U/L (8-55); AST (SGOT) 50 U/L (5-34); Albumin 2.2 g/dL (3.4-4.8); Alkaline Phosphatase 110 U/L (40-110); Bilirubin, Direct 0.3 mg/dL (0.1-0.3); Bilirubin, Total 0.5 mg/dL (0.2-1.2); Protein, Total 4.4 g/dL (5.8-8.1)
[2023-06-06] MEDS: Vasopressin 20 UNITS in Sodium Chloride 0.9% 50 ML IV SCH (08:55)
[2023-06-06] MEDS: Magnesium 2 GM/50 ML(in water) 2 GM in Premix 1 BAG IVPB SCH (08:55)
[2023-06-06 12:27] LABS: Hematocrit 21.5 % (36.0-47.0); Hemoglobin 7.3 g/dL (12.0-16.0)
[2023-06-06 13:40] LABS: Anion Gap 15 mmol/L (10-20); Globulin 2.2 g/dL (2.4-3.5)
[2023-06-06 13:45] LABS: ALT (SGPT) 6 U/L (8-55); AST (SGOT) 40 U/L (5-34); Albumin 2.5 g/dL (3.4-4.8); Alkaline Phosphatase 97 U/L (40-110); BUN (Urea Nitrogen) 71 mg/dL (9.8-20.1); Bilirubin, Total 0.7 mg/dL (0.2-1.2); Calc. Creatinine Clearance 24 mL/min (70-130); Calcium 8.1 mg/dL (7.8-10.44); Carbon Dioxide 21 mmol/L (23-31); Chloride 106 mmol/L (98-107); Estimated GFR 18; Glucose 103 mg/dL (80-115); Potassium 3.8 mmol/L (3.5-5.1); Protein, Total 4.7 g/dL (5.8-8.1); Sodium 138 mmol/L (136-145)
[2023-06-06] MEDS: Bumetanide 1 MG/4 ML VIAL IVP SCH (14:15)
[2023-06-06] MEDS: Budesonide 0.5 MG/2 ML NEB INH SCH (18:27)
[2023-06-07 04:41] LABS: #Basophils Less than 0.03 10x3/uL (0.0-0.2); %Basophils 0.2 % (0.0-1.0); %Eosinophils 1.9 % (0.0-10.0); %Lymphocytes 6.8 % (21.0-51.0); %Monocytes 8.5 % (0.0-10.0); %Neutrophils 80.7 % (42.0-75.0); Hematocrit 25.2 % (36.0-47.0); Hemoglobin 8.5 g/dL (12.0-16.0); Mean Corpuscular HGB CONC 33.7 g/dL (32.0-36.0); Mean Corpuscular Hemoglobin 28.7 pg (27.0-31.0); Mean Corpuscular Volume 85.1 fL (78.0-98.0); Platelet Count 54 10x3/uL (130-400); RBC Distribution Width 17.6 % (11.5-14.5); Red Blood Cell (RBC) Count 2.96 mill/uL (4.20-5.40)
[2023-06-07 05:08] LABS: Platelet Adequacy Comment Platelets Decreased; Polychromasia SLIGHT = 2-3 cells HPF (0-2); RBC Morphology Within Normal Limits
[2023-06-07 05:12] LABS: Anion Gap 14 mmol/L (10-20)
[2023-06-07 05:15] LABS: BUN (Urea Nitrogen) 72 mg/dL (9.8-20.1); Calc. Creatinine Clearance 23 mL/min (70-130); Calcium 8.6 mg/dL (7.8-10.44); Carbon Dioxide 23 mmol/L (23-31); Chloride 104 mmol/L (98-107); Estimated GFR 17; Glucose 129 mg/dL (80-115); Potassium 3.4 mmol/L (3.5-5.1); Sodium 138 mmol/L (136-145)
[2023-06-07 07:02] LABS: Actual Bicarbonate (HCO3a) 20.3 mEq/L (22-28); Base Excess (BEa) -5.5 mEq/L (-2.0 to +3.0); CO2 Tension 40.4 mmHg (35.0-45.0); Calcium, Ionized (arterial) 1.16 mmol/L (1.12-1.30); Carboxyhemoglobin (COHb) 1.4 gm% (0.0-3.0); Hematocrit-ABG 28 % (36.0-47.0); Hemoglobin (Hb) 9.4 g/dL (12.0-16.0); O2 Tension (PaO2), arterial 83.8 mmHg (> 80.0); pH, Arterial 7.318 (7.35-7.45)
[2023-06-07 07:03] LABS: Puncture Site LRA
[2023-06-07 09:41] LABS: INR-International Normal Ratio 1.8
[2023-06-07] MEDS: Potassium Chloride 20 MEQ in Premix 1 BAG IVPB SCH (09:41)
[2023-06-07 09:42] LABS: D-Dimer Test 3.93 mcg/mL (0.27-0.43)
[2023-06-07 09:54] LABS: Magnesium 2.2 mg/dL (1.6-2.6)
[2023-06-07] MEDS: Albumin 25% 25 GM (100 mL) BOT IVPB SCH (12:04)
[2023-06-07 16:15] LABS: #Basophils Less than 0.03 10x3/uL (0.0-0.2); %Basophils 0.2 % (0.0-1.0); %Eosinophils 1.5 % (0.0-10.0); %Lymphocytes 5.3 % (21.0-51.0); %Monocytes 8.5 % (0.0-10.0); %Neutrophils 82.1 % (42.0-75.0); Hematocrit 23.8 % (36.0-47.0); Hemoglobin 8.1 g/dL (12.0-16.0); Mean Corpuscular Hemoglobin 29.6 pg (27.0-31.0); Mean Corpuscular Volume 86.9 fL (78.0-98.0); Mean Platelet Volume 11.6 fL (7.4-10.4); Platelet Count 51 10x3/uL (130-400); RBC Distribution Width 17.9 % (11.5-14.5); Red Blood Cell (RBC) Count 2.74 mill/uL (4.20-5.40)
[2023-06-08 04:20] LABS: #Basophils 0.04 10x3/uL (0.0-0.2); %Basophils 0.3 % (0.0-1.0); %Eosinophils 0.8 % (0.0-10.0); %Lymphocytes 6.7 % (21.0-51.0); %Monocytes 6.7 % (0.0-10.0); %Neutrophils 80.5 % (42.0-75.0); Hematocrit 24.9 % (36.0-47.0); Hemoglobin 8.4 g/dL (12.0-16.0); Mean Corpuscular HGB CONC 33.3 g/dL (32.0-36.0); Mean Corpuscular Hemoglobin 28.9 pg (27.0-31.0); Mean Corpuscular Volume 86.6 fL (78.0-98.0); Mean Platelet Volume 10.9 fL (7.4-10.4); Platelet Count 58 10x3/uL (130-400); RBC Distribution Width 17.8 % (11.5-14.5); Red Blood Cell (RBC) Count 2.91 mill/uL (4.20-5.40)
[2023-06-08 05:12] LABS: Anion Gap 20 mmol/L (10-20)
[2023-06-08 05:14] LABS: BUN (Urea Nitrogen) 75 mg/dL (9.8-20.1); Calc. Creatinine Clearance 22 mL/min (70-130); Carbon Dioxide 21 mmol/L (23-31); Chloride 103 mmol/L (98-107); Estimated GFR 16; Glucose 69 mg/dL (80-115); Potassium 3.3 mmol/L (3.5-5.1); Sodium 141 mmol/L (136-145)
[2023-06-08] MEDS: Potassium Chloride 20 MEQ TAB PO SCH (09:52)
[2023-06-08] MEDS: Furosemide 100 MG (10 mL) VIAL SLOW IVP SCH (10:55)
[2023-06-08 12:09] LABS: Bilirubin Negative (Negative); Blood, Urine 3+ (Negative); Glucose, Urine (Dipstick) Normal (Negative); Ketone, Urine Negative (Negative); Leukocyte 500 Leu/uL (Negative); Nitrite Negative (Negative); Protein, Urine (Dipstick) 100 mg/dL (Neg-Trace); RBC/HPF Greater than 50 HPF (0-3); Specific Gravity, Urine 1.014 (1.002-1.036); Squamous Epithelial 0-3 HPF (0-3); Urobilinogen Normal mg/dL (Less than 2); WBC/HPF Greater than 50 HPF (0-3); Yeast-Budding 3+ HPF (None Seen); pH, Urine 5.5 (5.0-9.0)
[2023-06-08 12:17] LABS: Bacteria/HPF 1+ HPF (None Seen); Clarity Cloudy (Clear); Creatinine, Urine 33.83 mg/dL (47-110); Urea Nitrogen, Random Urine Greater than 100 mg/dl
[2023-06-08 12:22] LABS: Yeast-Hyphae 2+ HPF (None Seen)
[2023-06-08 12:23] LABS: Manual Microscopic Reviewed? No Path Casts Seen
[2023-06-08 12:27] LABS: Transitional Epithelial 0-3 HPF (None Seen)
[2023-06-08] MEDS: Potassium Chloride 20 MEQ in Premix 1 BAG IVPB SCH (12:32)
[2023-06-09 05:02] LABS: #Basophils 0.04 10x3/uL (0.0-0.2); %Basophils 0.3 % (0.0-1.0); %Eosinophils 2.1 % (0.0-10.0); %Lymphocytes 5.7 % (21.0-51.0); %Monocytes 6.8 % (0.0-10.0); %Neutrophils 80.4 % (42.0-75.0); Hematocrit 26.7 % (36.0-47.0); Hemoglobin 8.7 g/dL (12.0-16.0); Mean Corpuscular HGB CONC 32.6 g/dL (32.0-36.0); Mean Corpuscular Hemoglobin 29.2 pg (27.0-31.0); Mean Corpuscular Volume 89.6 fL (78.0-98.0); Mean Platelet Volume 10.9 fL (7.4-10.4); Platelet Count 95 10x3/uL (130-400); RBC Distribution Width 18.2 % (11.5-14.5); Red Blood Cell (RBC) Count 2.98 mill/uL (4.20-5.40)
[2023-06-09 05:45] LABS: Anion Gap 18 mmol/L (10-20)
[2023-06-09 05:47] LABS: BUN (Urea Nitrogen) 76 mg/dL (9.8-20.1); Calc. Creatinine Clearance 21 mL/min (70-130); Calcium 9.4 mg/dL (7.8-10.44); Carbon Dioxide 21 mmol/L (23-31); Chloride 105 mmol/L (98-107); Estimated GFR 16; Glucose 80 mg/dL (80-115); Potassium 3.3 mmol/L (3.5-5.1); Sodium 141 mmol/L (136-145)
[2023-06-09] MEDS: Potassium Chloride 20 MEQ TAB PO SCH (09:37)
[2023-06-09 11:48] LABS: Urine Total Volume 2425 mL (250-2400)
[2023-06-09 12:23] LABS: Protein - 24 Hr 897 mg/24 hr (Less than 300); Protein, Urine 37 mg/dL (1-14)
[2023-06-09] MEDS: Albumin 25% 25 GM (100 mL) BOT IVPB SCH ×2 (13:30→17:25)
[2023-06-09] MEDS: Furosemide 40 MG (4 mL) VIAL SLOW IVP SCH (17:25)
[2023-06-09] MEDS: Atorvastatin Calcium 20 MG TAB PO SCH (20:18)
[2023-06-10 05:19] LABS: #Basophils 0.06 10x3/uL (0.0-0.2); %Basophils 0.4 % (0.0-1.0); %Eosinophils 1.6 % (0.0-10.0); %Lymphocytes 5.9 % (21.0-51.0); %Monocytes 6.9 % (0.0-10.0); %Neutrophils 80.7 % (42.0-75.0); Hematocrit 25.5 % (36.0-47.0); Hemoglobin 8.2 g/dL (12.0-16.0); Mean Corpuscular HGB CONC 32.2 g/dL (32.0-36.0); Mean Corpuscular Volume 90.1 fL (78.0-98.0); Mean Platelet Volume 10.8 fL (7.4-10.4); Platelet Count 119 10x3/uL (130-400); RBC Distribution Width 18.1 % (11.5-14.5); Red Blood Cell (RBC) Count 2.83 mill/uL (4.20-5.40)
[2023-06-10 05:45] LABS: Anion Gap 16 mmol/L (10-20); Globulin 2.5 g/dL (2.4-3.5)
[2023-06-10 05:50] LABS: ALT (SGPT) Less than 5 U/L (8-55); AST (SGOT) 23 U/L (5-34); Albumin 3.7 g/dL (3.4-4.8); Alkaline Phosphatase 155 U/L (40-110); BUN (Urea Nitrogen) 76 mg/dL (9.8-20.1); Bilirubin, Total 0.8 mg/dL (0.2-1.2); Calc. Creatinine Clearance 21 mL/min (70-130); Calcium 9.8 mg/dL (7.8-10.44); Carbon Dioxide 23 mmol/L (23-31); Chloride 104 mmol/L (98-107); Estimated GFR 16; Glucose 102 mg/dL (80-115); Potassium 3.3 mmol/L (3.5-5.1); Protein, Total 6.2 g/dL (5.8-8.1); Sodium 140 mmol/L (136-145)
[2023-06-10] MEDS: Albuterol 2.5 MG (3 mL) NEB ONE (08:58)
[2023-06-10] MEDS ORDERED: Pantoprazole DR 40 MG TAB PO SCH (09:00)
[2023-06-10] MEDS ORDERED: Fentanyl BOLUS 250 ML IVPB PRN (09:15)
[2023-06-10] MEDS ORDERED: DISCONTINUE PREVIOUS NARCOTIC PAIN MEDICATIONS AND BENZODIAZEPINES FS SCH (09:15)
[2023-06-10] MEDS ORDERED: Propofol BOLUS 1,000 MG/100 ML VIAL IV PRN (09:15)
[2023-06-10] MEDS ORDERED: Lorazepam 2 MG/ML VIAL SLOW IVP PRN (09:15)
[2023-06-10] MEDS: Fentanyl CADD 100 ML IV SCH (09:45)
[2023-06-10] MEDS: Sodium Chloride 0.9% 1,000 ML IV SCH (10:00)
[2023-06-10] MEDS: NOREPINEPHRINE 8 MG/250 ML-D5W 250 ML ONE (10:01)
[2023-06-10] MEDS: Propofol 1,000 MG/100 ML VIAL IV ONE (10:01)
[2023-06-10 10:07] LABS: Actual Bicarbonate (HCO3a) 22.7 mEq/L (22-28); Base Excess (BEa) -6.7 mEq/L (-2.0 to +3.0); Calcium, Ionized (arterial) 1.29 mmol/L (1.12-1.30); Carboxyhemoglobin (COHb) 2.3 gm% (0.0-3.0); Hematocrit-ABG 25 % (36.0-47.0); Hemoglobin (Hb) 8.5 g/dL (12.0-16.0); Potassium - ABG Lab 3.13 mmol/L (3.70-5.30)
[2023-06-10] MEDS: NOREPINEPHRINE 8 MG/250 ML-D5W 250 ML IVPB SCH (10:13)
[2023-06-10 10:14] LABS: CO2 Tension 70.6 mmHg (35.0-45.0); pH, Arterial 7.125 (7.35-7.45)
[2023-06-10 10:15] LABS: Puncture Site LRA
[2023-06-10] MEDS: Propofol 1,000 MG/100 ML VIAL IV PRN (11:00)
[2023-06-10] MEDS ORDERED: SUCCINYLCHOLINE/SOD CL,ISO/PF 200 MG/10 ML SYRINGE FS ONE (11:34)
[2023-06-10] MEDS ORDERED: PROPOFOL 200 MG/20 ML VIAL ONE (11:34)
[2023-06-10] MEDS ORDERED: [UNRECOGNIZED DRUG - REMARK] IVPB PRN (12:01)
[2023-06-10] MEDS ORDERED: Vancomycin Dose by Levels Sliding Scale (Wt <71) FS SCH (12:15)
[2023-06-10] MEDS: Pantoprazole 40 MG VIAL IVP SCH (12:29)
[2023-06-10] MEDS: Lidocaine 1% (PF) 30 ML VIAL ONE ×3 (12:29→12:30)
[2023-06-10] MEDS: Lidocaine 1% (PF) 30 ML VIAL FS SCH (12:30)
[2023-06-10 13:41] LABS: #Basophils Less than 0.03 10x3/uL (0.0-0.2); %Basophils 0.1 % (0.0-1.0); %Eosinophils 0.9 % (0.0-10.0); %Lymphocytes 3.4 % (21.0-51.0); %Monocytes 7.3 % (0.0-10.0); %Neutrophils 83.9 % (42.0-75.0); Hematocrit 20.1 % (36.0-47.0); Hemoglobin 6.4 g/dL (12.0-16.0); Mean Corpuscular HGB CONC 31.8 g/dL (32.0-36.0); Mean Platelet Volume 10.6 fL (7.4-10.4); Platelet Count 119 10x3/uL (130-400); RBC Distribution Width 18.1 % (11.5-14.5); Red Blood Cell (RBC) Count 2.21 mill/uL (4.20-5.40)
[2023-06-10] MEDS ORDERED: VASOPRESSIN IV SCH (14:00)
[2023-06-10] MEDS ORDERED: SODIUM CHLORIDE 0.9% IV SCH (14:00)
[2023-06-10] MEDS: Vasopressin 20 UNITS in Sodium Chloride 0.9% 50 ML IV SCH (14:57)
[2023-06-10 15:01] LABS: INR-International Normal Ratio 1.7
[2023-06-10 15:02] LABS: PTT 35.6 sec (22.9-36.1)
[2023-06-10 15:04] LABS: D-Dimer Test 2.21 mcg/mL (0.27-0.43)
[2023-06-10 15:45] LABS: Actual Bicarbonate (HCO3a) 20.9 mEq/L (22-28); Base Excess (BEa) -6.8 mEq/L (-2.0 to +3.0); CO2 Tension 51.4 mmHg (35.0-45.0); Calcium, Ionized (arterial) 1.12 mmol/L (1.12-1.30); Carboxyhemoglobin (COHb) 1.4 gm% (0.0-3.0); Hematocrit-ABG 35 % (36.0-47.0); Hemoglobin (Hb) 11.8 g/dL (12.0-16.0); Potassium - ABG Lab 3.19 mmol/L (3.70-5.30); pH, Arterial 7.227 (7.35-7.45)
[2023-06-10 15:48] LABS: O2 Tension (PaO2), arterial 23.1 mmHg (> 80.0); Puncture Site LRAD
[2023-06-10] MEDS: Vancomycin (BATCH) 1.5 GM in Premix 1 BAG IVPB SCH (16:10)
[2023-06-10] MEDS: Cefepime 1 GM in Sodium Chloride 0.9% 100 ML IVPB SCH (16:52)
[2023-06-10] MEDS ORDERED: Dexamethasone 4 mg/ml Vial ONE (17:38)
[2023-06-10] MEDS ORDERED: Lidocaine 1% PF 5 ML VIAL ONE (17:38)
[2023-06-10] MEDS ORDERED: Rocuronium Bromide 10 MG/ML (10ML VIAL) ONE ×2 (17:38→19:28)
[2023-06-10] MEDS ORDERED: Ondansetron PF 4 MG/2 ML Vial ONE (17:38)
[2023-06-10] MEDS ORDERED: fentaNYL PF 100 MCG/2 ML SYRINGE ONE (17:41)
[2023-06-10] MEDS ORDERED: PROPOFOL 20 ML ONE (17:44)
[2023-06-10] MEDS ORDERED: ePHEDrine Sulfate 50 MG/10 ML VIAL ONE (18:03)
[2023-06-10] MEDS ORDERED: PHENYLEPHRINE-NS 100 MCG/ML 10 ML SYRINGE ONE (18:04)
[2023-06-10] MEDS ORDERED: Sodium Bicarb 50 MEQ/50 ML Abboject 8.4% SYRINGE ONE (19:05)
[2023-06-10] MEDS ORDERED: Ipratropium/Albuterol 3 ML NEB NEB PRN (20:06)
[2023-06-10 20:33] LABS: Actual Bicarbonate (HCO3a) 23.2 mEq/L (22-28); Base Excess (BEa) -4.2 mEq/L (-2.0 to +3.0); CO2 Tension 53.7 mmHg (35.0-45.0); Calcium, Ionized (arterial) 1.21 mmol/L (1.12-1.30); Carboxyhemoglobin (COHb) 0.6 gm% (0.0-3.0); Hematocrit-ABG 31 % (36.0-47.0); Hemoglobin (Hb) 10.6 g/dL (12.0-16.0); O2 Tension (PaO2), arterial 206.6 mmHg (> 80.0); Potassium - ABG Lab 3.14 mmol/L (3.70-5.30); pH, Arterial 7.254 (7.35-7.45)
[2023-06-10 20:34] LABS: Puncture Site Arterial Line
[2023-06-10 20:35] LABS: ALV-art Gradient 332.325 mmHg (0-20)
[2023-06-10 21:23] LABS: #Basophils 0.03 10x3/uL (0.0-0.2); %Basophils 0.2 % (0.0-1.0); %Eosinophils 0.9 % (0.0-10.0); %Lymphocytes 2.8 % (21.0-51.0); %Monocytes 4.9 % (0.0-10.0); %Neutrophils 87.5 % (42.0-75.0); Hematocrit 28.3 % (36.0-47.0); Hemoglobin 9.8 g/dL (12.0-16.0); Mean Corpuscular HGB CONC 34.6 g/dL (32.0-36.0); Mean Corpuscular Hemoglobin 30.2 pg (27.0-31.0); Mean Corpuscular Volume 87.3 fL (78.0-98.0); Mean Platelet Volume 10.8 fL (7.4-10.4); Platelet Count 115 10x3/uL (130-400); RBC Distribution Width 15.3 % (11.5-14.5); Red Blood Cell (RBC) Count 3.24 mill/uL (4.20-5.40)
[2023-06-10 21:24] LABS: Anion Gap 14 mmol/L (10-20); Globulin 2.2 g/dL (2.4-3.5)
[2023-06-10] MEDS: Potassium Chloride 40 MEQ in Premix 1 BAG IVPB SCH (21:26)
[2023-06-10 21:28] LABS: ALT (SGPT) 9 U/L (8-55); AST (SGOT) 30 U/L (5-34); Alkaline Phosphatase 155 U/L (40-110); BUN (Urea Nitrogen) 70 mg/dL (9.8-20.1); Bilirubin, Total 1.3 mg/dL (0.2-1.2); Calc. Creatinine Clearance 25 mL/min (70-130); Calcium 8.5 mg/dL (7.8-10.44); Carbon Dioxide 25 mmol/L (23-31); Chloride 107 mmol/L (98-107); Estimated GFR 21; Glucose 87 mg/dL (80-115); Potassium 2.9 mmol/L (3.5-5.1); Protein, Total 5.2 g/dL (5.8-8.1); Sodium 143 mmol/L (136-145)
[2023-06-10 21:31] LABS: INR-International Normal Ratio 1.5; Prothrombin Time 18.4 sec (12.0-14.7)
[2023-06-10 21:32] LABS: PTT 32.8 sec (22.9-36.1)
[2023-06-10 21:34] LABS: D-Dimer Test 2.08 mcg/mL (0.27-0.43)
[2023-06-10 21:38] LABS: Fibrinogen 271 mg/dL (253-463)
[2023-06-10 22:02] LABS: Platelet Count 115 10x3/uL (130-400)
[2023-06-11 01:17] LABS: Hematocrit 25.4 % (36.0-47.0); Hemoglobin 8.9 g/dL (12.0-16.0); Platelet Count 105 10x3/uL (130-400)
[2023-06-11 01:25] LABS: INR-International Normal Ratio 1.6; Prothrombin Time 18.7 sec (12.0-14.7)
[2023-06-11 01:26] LABS: PTT 42.9 sec (22.9-36.1)
[2023-06-11 01:42] LABS: Anion Gap 13 mmol/L (10-20)
[2023-06-11 01:45] LABS: BUN (Urea Nitrogen) 71 mg/dL (9.8-20.1); Calc. Creatinine Clearance 25 mL/min (70-130); Calcium 8.7 mg/dL (7.8-10.44); Carbon Dioxide 25 mmol/L (23-31); Chloride 108 mmol/L (98-107); Estimated GFR 21; Glucose 82 mg/dL (80-115); Potassium 3.7 mmol/L (3.5-5.1); Sodium 142 mmol/L (136-145)
[2023-06-11 05:16] LABS: #Basophils 0.03 10x3/uL (0.0-0.2); %Basophils 0.2 % (0.0-1.0); %Eosinophils 0.9 % (0.0-10.0); %Lymphocytes 3.3 % (21.0-51.0); %Monocytes 5.2 % (0.0-10.0); %Neutrophils 88.8 % (42.0-75.0); Fibrinogen 277 mg/dL (253-463); Hematocrit 25.4 % (36.0-47.0); INR-International Normal Ratio 1.5; Mean Corpuscular HGB CONC 35.4 g/dL (32.0-36.0); Mean Corpuscular Hemoglobin 30.4 pg (27.0-31.0); Mean Corpuscular Volume 85.8 fL (78.0-98.0); Mean Platelet Volume 10.6 fL (7.4-10.4); Platelet Count 108 10x3/uL (130-400); Prothrombin Time 18.2 sec (12.0-14.7); RBC Distribution Width 15.7 % (11.5-14.5); Red Blood Cell (RBC) Count 2.96 mill/uL (4.20-5.40)
[2023-06-11 05:17] LABS: PTT 35.9 sec (22.9-36.1)
[2023-06-11 05:18] LABS: Anion Gap 15 mmol/L (10-20); Globulin 2.2 g/dL (2.4-3.5)
[2023-06-11 05:22] LABS: ALT (SGPT) 6 U/L (8-55); AST (SGOT) 26 U/L (5-34); Albumin 2.7 g/dL (3.4-4.8); Alkaline Phosphatase 129 U/L (40-110); BUN (Urea Nitrogen) 72 mg/dL (9.8-20.1); Bilirubin, Total 1.5 mg/dL (0.2-1.2); Calc. Creatinine Clearance 26 mL/min (70-130); Calcium 8.8 mg/dL (7.8-10.44); Carbon Dioxide 24 mmol/L (23-31); Chloride 108 mmol/L (98-107); Estimated GFR 20; Glucose 86 mg/dL (80-115); Potassium 3.4 mmol/L (3.5-5.1); Protein, Total 4.9 g/dL (5.8-8.1); Sodium 144 mmol/L (136-145)
[2023-06-11 05:31] LABS: Platelet Count 108 10x3/uL (130-400)
[2023-06-11 07:21] LABS: Actual Bicarbonate (HCO3a) 23.8 mEq/L (22-28); Base Excess (BEa) -0.6 mEq/L (-2.0 to +3.0); CO2 Tension 38.2 mmHg (35.0-45.0); Calcium, Ionized (arterial) 1.16 mmol/L (1.12-1.30); Carboxyhemoglobin (COHb) 0.6 gm% (0.0-3.0); Hematocrit-ABG 30 % (36.0-47.0); Hemoglobin (Hb) 10.2 g/dL (12.0-16.0); Potassium - ABG Lab 3.29 mmol/L (3.70-5.30); pH, Arterial 7.413 (7.35-7.45)
[2023-06-11 07:32] LABS: Puncture Site ALINE
[2023-06-11 13:10] LABS: Anion Gap 13 mmol/L (10-20)
[2023-06-11 13:12] LABS: BUN (Urea Nitrogen) 71 mg/dL (9.8-20.1); Calc. Creatinine Clearance 26 mL/min (70-130); Calcium 8.7 mg/dL (7.8-10.44); Carbon Dioxide 25 mmol/L (23-31); Chloride 109 mmol/L (98-107); Estimated GFR 21; Glucose 79 mg/dL (80-115); Potassium 3.1 mmol/L (3.5-5.1); Sodium 144 mmol/L (136-145)
[2023-06-11] MEDS: Potassium Chloride 20 MEQ in Premix 1 BAG IVPB SCH (14:47)
[2023-06-11 17:11] LABS: Vancomycin, Trough 26.6 ug/mL
[2023-06-11] MEDS: Cefepime 1 GM in Sodium Chloride 0.9% 100 ML IVPB SCH (23:05)
[2023-06-12 05:03] LABS: #Basophils 0.05 10x3/uL (0.0-0.2); %Basophils 0.2 % (0.0-1.0); %Eosinophils 1.9 % (0.0-10.0); %Lymphocytes 3.6 % (21.0-51.0); %Monocytes 4.7 % (0.0-10.0); %Neutrophils 87.9 % (42.0-75.0); Hematocrit 25.6 % (36.0-47.0); Hemoglobin 8.9 g/dL (12.0-16.0); Mean Corpuscular HGB CONC 34.8 g/dL (32.0-36.0); Mean Corpuscular Hemoglobin 30.2 pg (27.0-31.0); Mean Corpuscular Volume 86.8 fL (78.0-98.0); Mean Platelet Volume 10.5 fL (7.4-10.4); Platelet Count 138 10x3/uL (130-400); RBC Distribution Width 16.5 % (11.5-14.5); Red Blood Cell (RBC) Count 2.95 mill/uL (4.20-5.40)
[2023-06-12 05:59] LABS: Anion Gap 14 mmol/L (10-20); Globulin 2.7 g/dL (2.4-3.5)
[2023-06-12 06:03] LABS: ALT (SGPT) 5 U/L (8-55); AST (SGOT) 25 U/L (5-34); Albumin 2.4 g/dL (3.4-4.8); Alkaline Phosphatase 129 U/L (40-110); BUN (Urea Nitrogen) 69 mg/dL (9.8-20.1); Bilirubin, Total 1.4 mg/dL (0.2-1.2); Calc. Creatinine Clearance 25 mL/min (70-130); Calcium 9.3 mg/dL (7.8-10.44); Carbon Dioxide 24 mmol/L (23-31); Chloride 110 mmol/L (98-107); Estimated GFR 20; Glucose 73 mg/dL (80-115); Potassium 3.2 mmol/L (3.5-5.1); Protein, Total 5.1 g/dL (5.8-8.1); Sodium 145 mmol/L (136-145)
[2023-06-12 06:59] LABS: Actual Bicarbonate (HCO3a) 22.8 mEq/L (22-28); Base Excess (BEa) -1.5 mEq/L (-2.0 to +3.0); CO2 Tension 37.3 mmHg (35.0-45.0); Carboxyhemoglobin (COHb) 0.8 gm% (0.0-3.0); Hematocrit-ABG 34 % (36.0-47.0); Hemoglobin (Hb) 11.5 g/dL (12.0-16.0); O2 Tension (PaO2), arterial 78.9 mmHg (> 80.0); Potassium - ABG Lab 3.21 mmol/L (3.70-5.30); pH, Arterial 7.405 (7.35-7.45)
[2023-06-12 07:02] LABS: Magnesium 1.7 mg/dL (1.6-2.6)
[2023-06-12 07:22] LABS: Puncture Site RRA
[2023-06-12 07:23] LABS: ALV-art Gradient 159.675 mmHg (0-20)
[2023-06-12] MEDS: Potassium Chloride 40 MEQ in Premix 1 BAG IVPB SCH (07:30)
[2023-06-12 10:41] LABS: Actual Bicarbonate (HCO3v) 22.1 mEq/L (22-28); Analyzer IN Cardio OR; Base Excess -5.2 mEq/L (-2.0 to +3.0); Calcium, Ionized (venous) 1.13 mmol/L (1.16-1.32); Chloride (VBG) 99 mmol/L (98-106); Hematocrit-VBG 27 % (36.0-47.0); Hemoglobin (Hb) 9.2 g/dL (11.7-16.1); Potassium (VBG) 4.09 mmol/L (3.70-5.30); Sodium 133 mmol/L (133-146); pH (venous) 7.242 (7.32-7.43)
[2023-06-12 10:41] LABS: Actual Bicarbonate (HCO3a) 24.9 mEq/L (22-28); Analyzer IN Cardio OR; Base Excess (BEa) -2.9 mEq/L (-2.0 to +3.0); Calcium, Ionized (arterial) 1.05 mmol/L (1.12-1.30); Carboxyhemoglobin (COHb) 1.1 gm% (0.0-3.0); Hematocrit-ABG 28 % (36.0-47.0); Hemoglobin (Hb) 9.4 g/dL (12.0-16.0); O2 Tension (PaO2), arterial 341.8 mmHg (> 80.0); Potassium - ABG Lab 3.98 mmol/L (3.70-5.30); pH, Arterial 7.236 (7.35-7.45)
[2023-06-12 10:42] LABS: Puncture Site Arterial Line
[2023-06-12] MEDS ORDERED: Glucagon 1 MG/ML KIT IM PRN (11:30)
[2023-06-12] MEDS: Dextrose 50% Abboject 50 ML SYRINGE SLOW IVP PRN (11:45)
[2023-06-12] MEDS: Dextrose 50% Abboject 50 ML SYRINGE ONE (11:46)
[2023-06-12 14:50] LABS: Actual Bicarbonate (HCO3a) 24.9 mEq/L (22-28); Analyzer IN Cardio OR; Base Excess (BEa) -4.1 mEq/L (-2.0 to +3.0); Carboxyhemoglobin (COHb) 0.7 gm% (0.0-3.0); Hematocrit-ABG 30 % (36.0-47.0); Hemoglobin (Hb) 10.3 g/dL (12.0-16.0); O2 Tension (PaO2), arterial 79.8 mmHg (> 80.0); Potassium - ABG Lab 3.13 mmol/L (3.70-5.30)
[2023-06-12 14:50] LABS: Actual Bicarbonate (HCO3a) 22.3 mEq/L (22-28); Analyzer IN Cardio OR; Base Excess (BEa) -5.4 mEq/L (-2.0 to +3.0); Calcium, Ionized (arterial) 1.13 mmol/L (1.12-1.30); O2 Tension (PaO2), arterial 298.4 mmHg (> 80.0); Potassium - ABG Lab 2.73 mmol/L (3.70-5.30); pH, Arterial 7.251 (7.35-7.45)
[2023-06-12 14:53] LABS: CO2 Tension 67.9 mmHg (35.0-45.0); Puncture Site Arterial Line; pH, Arterial 7.182 (7.35-7.45)
[2023-06-12 19:08] LABS: Vancomycin, Trough 23.5 ug/mL
[2023-06-12] MEDS: Potassium Chloride 20 MEQ TAB PER TUBE SCH (19:54)
[2023-06-13 05:33] LABS: #Basophils 0.04 10x3/uL (0.0-0.2); %Basophils 0.2 % (0.0-1.0); %Eosinophils 2.8 % (0.0-10.0); %Lymphocytes 4.5 % (21.0-51.0); %Monocytes 5.3 % (0.0-10.0); %Neutrophils 85.9 % (42.0-75.0); Hematocrit 26.2 % (36.0-47.0); Hemoglobin 8.7 g/dL (12.0-16.0); Mean Corpuscular HGB CONC 33.2 g/dL (32.0-36.0); Mean Corpuscular Volume 90.3 fL (78.0-98.0); Mean Platelet Volume 10.4 fL (7.4-10.4); Platelet Count 174 10x3/uL (130-400)
[2023-06-13 06:06] LABS: Anion Gap 15 mmol/L (10-20); Globulin 2.9 g/dL (2.4-3.5)
[2023-06-13 06:10] LABS: ALT (SGPT) 6 U/L (8-55); AST (SGOT) 30 U/L (5-34); Albumin 2.4 g/dL (3.4-4.8); Alkaline Phosphatase 174 U/L (40-110); BUN (Urea Nitrogen) 71 mg/dL (9.8-20.1); Bilirubin, Total 1.2 mg/dL (0.2-1.2); Calc. Creatinine Clearance 26 mL/min (70-130); Calcium 9.3 mg/dL (7.8-10.44); Carbon Dioxide 23 mmol/L (23-31); Chloride 110 mmol/L (98-107); Estimated GFR 21; Glucose 91 mg/dL (80-115); Potassium 3.4 mmol/L (3.5-5.1); Protein, Total 5.3 g/dL (5.8-8.1); Sodium 145 mmol/L (136-145)
[2023-06-13 07:08] LABS: Actual Bicarbonate (HCO3a) 19.3 mEq/L (22-28); Base Excess (BEa) -5.8 mEq/L (-2.0 to +3.0); CO2 Tension 36.3 mmHg (35.0-45.0); Calcium, Ionized (arterial) 1.24 mmol/L (1.12-1.30); Carboxyhemoglobin (COHb) 0.8 gm% (0.0-3.0); Hematocrit-ABG 28 % (36.0-47.0); Hemoglobin (Hb) 9.5 g/dL (12.0-16.0); O2 Tension (PaO2), arterial 81.6 mmHg (> 80.0); Potassium - ABG Lab 3.48 mmol/L (3.70-5.30); pH, Arterial 7.344 (7.35-7.45)
[2023-06-13 07:17] LABS: Puncture Site A
[2023-06-13 07:18] LABS: ALV-art Gradient 158.225 mmHg (0-20)
[2023-06-13] MEDS: Albumin 25% 25 GM (100 mL) BOT IVPB SCH (09:44)
[2023-06-13] MEDS: Potassium Chloride 20 MEQ TAB PER TUBE SCH (11:01)
[2023-06-13] MEDS: Dextrose 5% in Water 1,000 ML IV PRN (11:27)
[2023-06-13 17:48] LABS: Vancomycin, Trough 20.5 ug/mL
[2023-06-13] MEDS ORDERED: Dextrose 5% in Water 1,000 ML IV SCH (18:30)
[2023-06-14 03:30] LABS: #Basophils 0.03 10x3/uL (0.0-0.2); %Basophils 0.2 % (0.0-1.0); %Lymphocytes 4.2 % (21.0-51.0); %Monocytes 5.7 % (0.0-10.0); %Neutrophils 85.9 % (42.0-75.0); Hematocrit 24.8 % (36.0-47.0); Hemoglobin 8.1 g/dL (12.0-16.0); Mean Corpuscular HGB CONC 32.7 g/dL (32.0-36.0); Mean Corpuscular Hemoglobin 30.1 pg (27.0-31.0); Mean Corpuscular Volume 92.2 fL (78.0-98.0); Platelet Count 170 10x3/uL (130-400); RBC Distribution Width 17.2 % (11.5-14.5); Red Blood Cell (RBC) Count 2.69 mill/uL (4.20-5.40)
[2023-06-14 03:43] LABS: Anion Gap 15 mmol/L (10-20); Globulin 2.8 g/dL (2.4-3.5)
[2023-06-14 03:48] LABS: ALT (SGPT) 7 U/L (8-55); AST (SGOT) 33 U/L (5-34); Albumin 2.7 g/dL (3.4-4.8); Alkaline Phosphatase 189 U/L (40-110); BUN (Urea Nitrogen) 73 mg/dL (9.8-20.1); Bilirubin, Total 1.2 mg/dL (0.2-1.2); Calc. Creatinine Clearance 27 mL/min (70-130); Calcium 9.7 mg/dL (7.8-10.44); Carbon Dioxide 21 mmol/L (23-31); Chloride 109 mmol/L (98-107); Estimated GFR 22; Glucose 114 mg/dL (80-115); Potassium 3.3 mmol/L (3.5-5.1); Protein, Total 5.5 g/dL (5.8-8.1); Sodium 142 mmol/L (136-145)
[2023-06-14 07:07] LABS: Actual Bicarbonate (HCO3a) 21.9 mEq/L (22-28); Base Excess (BEa) -3.9 mEq/L (-2.0 to +3.0); CO2 Tension 42.7 mmHg (35.0-45.0); Calcium, Ionized (arterial) 1.28 mmol/L (1.12-1.30); Carboxyhemoglobin (COHb) 1.7 gm% (0.0-3.0); Hematocrit-ABG 44 % (36.0-47.0); Hemoglobin (Hb) 15.1 g/dL (12.0-16.0); O2 Tension (PaO2), arterial 87.1 mmHg (> 80.0); Potassium - ABG Lab 3.48 mmol/L (3.70-5.30); pH, Arterial 7.328 (7.35-7.45)
[2023-06-14 07:12] LABS: Puncture Site RRA
[2023-06-14 07:13] LABS: ALV-art Gradient 109.075 mmHg (0-20)
[2023-06-14] MEDS: Potassium Chloride 40 MEQ in Premix 1 BAG IVPB SCH (07:28)
[2023-06-14] MEDS: Albumin 25% 25 GM (100 mL) BOT IVPB SCH (07:28)
[2023-06-14] MEDS ORDERED: Guaifenesin DM 100-10/5 ML UDCUP PO SCH (08:15)
[2023-06-14] MEDS ORDERED: Potassium Chloride 20 MEQ TAB PER TUBE SCH (10:15)
[2023-06-14] MEDS: Guaifenesin DM 100-10/5 ML UDCUP PO SCH (11:49)
[2023-06-14] MEDS: Glycopyrrolate 1 MG TAB PER TUBE SCH (11:49)
[2023-06-14] MEDS: Scopolamine 1 mg/72 hour Patch TD SCH (11:49)
[2023-06-15 04:48] LABS: #Basophils 0.03 10x3/uL (0.0-0.2); %Basophils 0.2 % (0.0-1.0); %Lymphocytes 6.1 % (21.0-51.0); %Monocytes 6.4 % (0.0-10.0); %Neutrophils 81.3 % (42.0-75.0); Hematocrit 23.9 % (36.0-47.0); Hemoglobin 7.6 g/dL (12.0-16.0); Mean Corpuscular HGB CONC 31.8 g/dL (32.0-36.0); Mean Corpuscular Hemoglobin 29.9 pg (27.0-31.0); Mean Corpuscular Volume 94.1 fL (78.0-98.0); Mean Platelet Volume 9.8 fL (7.4-10.4); Platelet Count 182 10x3/uL (130-400); RBC Distribution Width 17.2 % (11.5-14.5); Red Blood Cell (RBC) Count 2.54 mill/uL (4.20-5.40)
[2023-06-15 04:58] LABS: Anion Gap 14 mmol/L (10-20); Globulin 2.8 g/dL (2.4-3.5)
[2023-06-15 05:02] LABS: ALT (SGPT) 12 U/L (8-55); AST (SGOT) 56 U/L (5-34); Albumin 2.7 g/dL (3.4-4.8); Alkaline Phosphatase 217 U/L (40-110); BUN (Urea Nitrogen) 74 mg/dL (9.8-20.1); Calc. Creatinine Clearance 28 mL/min (70-130); Calcium 9.2 mg/dL (7.8-10.44); Carbon Dioxide 21 mmol/L (23-31); Chloride 112 mmol/L (98-107); Estimated GFR 23; Glucose 123 mg/dL (80-115); Potassium 3.4 mmol/L (3.5-5.1); Protein, Total 5.5 g/dL (5.8-8.1); Sodium 144 mmol/L (136-145)
[2023-06-15 06:10] LABS: Magnesium 1.6 mg/dL (1.6-2.6)
[2023-06-15] MEDS: Potassium Chloride 40 MEQ in Premix 1 BAG IVPB SCH (06:37)
[2023-06-15 07:22] LABS: Actual Bicarbonate (HCO3a) 20.6 mEq/L (22-28); Base Excess (BEa) -4.8 mEq/L (-2.0 to +3.0); CO2 Tension 39.2 mmHg (35.0-45.0); Carboxyhemoglobin (COHb) 1.7 gm% (0.0-3.0); Hematocrit-ABG 38 % (36.0-47.0); Hemoglobin (Hb) 12.9 g/dL (12.0-16.0); O2 Tension (PaO2), arterial 93.6 mmHg (> 80.0); Potassium - ABG Lab 3.46 mmol/L (3.70-5.30); pH, Arterial 7.338 (7.35-7.45)
[2023-06-15 07:34] LABS: Puncture Site RRA
[2023-06-15] MEDS: Albumin 25% 25 GM (100 mL) BOT IVPB SCH (08:24)
[2023-06-15] MEDS: Magnesium 2 GM/50 ML(in water) 2 GM in Premix 1 BAG IVPB SCH (08:24)
[2023-06-15 11:13] LABS: INR-International Normal Ratio 1.5; Prothrombin Time 18.4 sec (12.0-14.7)
[2023-06-15 11:14] LABS: PTT 39.5 sec (22.9-36.1)
[2023-06-16 04:52] LABS: #Basophils 0.06 10x3/uL (0.0-0.2); %Basophils 0.4 % (0.0-1.0); %Eosinophils 2.5 % (0.0-10.0); %Lymphocytes 4.5 % (21.0-51.0); %Monocytes 6.8 % (0.0-10.0); %Neutrophils 83.4 % (42.0-75.0); Hematocrit 24.8 % (36.0-47.0); Hemoglobin 8.1 g/dL (12.0-16.0); Mean Corpuscular HGB CONC 32.7 g/dL (32.0-36.0); Mean Corpuscular Hemoglobin 30.2 pg (27.0-31.0); Mean Corpuscular Volume 92.5 fL (78.0-98.0); Mean Platelet Volume 9.9 fL (7.4-10.4); Platelet Count 182 10x3/uL (130-400); RBC Distribution Width 17.2 % (11.5-14.5); Red Blood Cell (RBC) Count 2.68 mill/uL (4.20-5.40)
[2023-06-16 05:10] LABS: Anion Gap 14 mmol/L (10-20); Globulin 2.8 g/dL (2.4-3.5)
[2023-06-16 05:14] LABS: ALT (SGPT) 23 U/L (8-55); AST (SGOT) 83 U/L (5-34); Albumin 2.8 g/dL (3.4-4.8); Alkaline Phosphatase 242 U/L (40-110); BUN (Urea Nitrogen) 74 mg/dL (9.8-20.1); Bilirubin, Total 0.9 mg/dL (0.2-1.2); Calc. Creatinine Clearance 29 mL/min (70-130); Calcium 9.4 mg/dL (7.8-10.44); Carbon Dioxide 21 mmol/L (23-31); Chloride 113 mmol/L (98-107); Estimated GFR 25; Glucose 111 mg/dL (80-115); Potassium 3.4 mmol/L (3.5-5.1); Protein, Total 5.6 g/dL (5.8-8.1); Sodium 145 mmol/L (136-145)
[2023-06-16 06:42] LABS: Actual Bicarbonate (HCO3a) 19.9 mEq/L (22-28); Analyzer IN Cardio ER; Base Excess (BEa) -4.9 mEq/L (-2.0 to +3.0); CO2 Tension 35.4 mmHg (35.0-45.0); Carboxyhemoglobin (COHb) 1.3 gm% (0.0-3.0); Hematocrit-ABG 25 % (36.0-47.0); Hemoglobin (Hb) 8.5 g/dL (12.0-16.0); O2 Tension (PaO2), arterial 90.6 mmHg (> 80.0); Potassium - ABG Lab 3.53 mmol/L (3.70-5.30); pH, Arterial 7.367 (7.35-7.45)
[2023-06-16] MEDS: Potassium Chloride 40 MEQ in Premix 1 BAG IVPB SCH (06:46)
[2023-06-16 07:13] LABS: Puncture Site RRA
[2023-06-17 04:51] LABS: Anion Gap 16 mmol/L (10-20); Globulin 3.2 g/dL (2.4-3.5)
[2023-06-17 04:56] LABS: ALT (SGPT) 20 U/L (8-55); AST (SGOT) 45 U/L (5-34); Albumin 2.8 g/dL (3.4-4.8); Alkaline Phosphatase 205 U/L (40-110); BUN (Urea Nitrogen) 74 mg/dL (9.8-20.1); Bilirubin, Total 1.2 mg/dL (0.2-1.2); Calc. Creatinine Clearance 30 mL/min (70-130); Calcium 9.7 mg/dL (7.8-10.44); Carbon Dioxide 21 mmol/L (23-31); Chloride 113 mmol/L (98-107); Estimated GFR 26; Glucose 81 mg/dL (80-115); Potassium 4.2 mmol/L (3.5-5.1); Sodium 146 mmol/L (136-145)
[2023-06-17] MEDS: Pantoprazole 40 MG VIAL IVP SCH (08:07)
[2023-06-17] MEDS ORDERED: Lansoprazole 15 MG/5 ML (BATCHED)UDCUP PER TUBE SCH (09:00)
[2023-06-17] MEDS: Levothyroxine Sodium 88 MCG TAB PER TUBE SCH (10:54)
[2023-06-17] MEDS: Guaifenesin DM 100-10/5 ML UDCUP PO SCH (10:54)
[2023-06-17] MEDS: Bacitracin Zinc Ointment 30 gm TUBE TOP SCH (15:59)
[2023-06-18 06:08] LABS: Anion Gap 15 mmol/L (10-20); Globulin 3.3 g/dL (2.4-3.5)
[2023-06-18 06:13] LABS: ALT (SGPT) 25 U/L (8-55); AST (SGOT) 60 U/L (5-34); Albumin 2.8 g/dL (3.4-4.8); Alkaline Phosphatase 275 U/L (40-110); BUN (Urea Nitrogen) 75 mg/dL (9.8-20.1); Bilirubin, Total 1.2 mg/dL (0.2-1.2); Calc. Creatinine Clearance 30 mL/min (70-130); Calcium 9.8 mg/dL (7.8-10.44); Carbon Dioxide 21 mmol/L (23-31); Chloride 115 mmol/L (98-107); Estimated GFR 25; Glucose 121 mg/dL (80-115); Potassium 4.2 mmol/L (3.5-5.1); Protein, Total 6.1 g/dL (5.8-8.1); Sodium 147 mmol/L (136-145)
[2023-06-18 08:42] LABS: #Basophils 0.06 10x3/uL (0.0-0.2); %Basophils 0.3 % (0.0-1.0); %Eosinophils 2.3 % (0.0-10.0); %Lymphocytes 6.1 % (21.0-51.0); %Monocytes 9.1 % (0.0-10.0); Hematocrit 27.9 % (36.0-47.0); Mean Corpuscular HGB CONC 32.3 g/dL (32.0-36.0); Mean Corpuscular Hemoglobin 30.5 pg (27.0-31.0); Mean Corpuscular Volume 94.6 fL (78.0-98.0); Mean Platelet Volume 9.9 fL (7.4-10.4); Platelet Count 210 10x3/uL (130-400); RBC Distribution Width 17.5 % (11.5-14.5); Red Blood Cell (RBC) Count 2.95 mill/uL (4.20-5.40)
[2023-06-18] MEDS: Lansoprazole 15 MG/5 ML (BATCHED)UDCUP PER TUBE SCH (09:06)
[2023-06-18] MEDS: Carvedilol 6.25 MG TAB PO SCH ×2 (13:32→20:24)
[2023-06-18 13:38] VITALS: BP 179/67
[2023-06-18] MEDS: Amiodarone 200 MG TAB PO SCH (13:38)
[2023-06-19 04:56] LABS: Anion Gap 16 mmol/L (10-20); Globulin 3.2 g/dL (2.4-3.5)
[2023-06-19 05:01] LABS: ALT (SGPT) 34 U/L (8-55); AST (SGOT) 75 U/L (5-34); Albumin 2.4 g/dL (3.4-4.8); Alkaline Phosphatase 262 U/L (40-110); BUN (Urea Nitrogen) 74 mg/dL (9.8-20.1); Bilirubin, Total 0.8 mg/dL (0.2-1.2); Calc. Creatinine Clearance 29 mL/min (70-130); Calcium 9.5 mg/dL (7.8-10.44); Carbon Dioxide 20 mmol/L (23-31); Chloride 116 mmol/L (98-107); Estimated GFR 26; Glucose 131 mg/dL (80-115); Potassium 4.3 mmol/L (3.5-5.1); Protein, Total 5.6 g/dL (5.8-8.1); Sodium 148 mmol/L (136-145)
[2023-06-19 08:43] LABS: #Basophils 0.04 10x3/uL (0.0-0.2); %Basophils 0.3 % (0.0-1.0); %Eosinophils 3.6 % (0.0-10.0); %Lymphocytes 6.9 % (21.0-51.0); %Monocytes 8.5 % (0.0-10.0); %Neutrophils 77.8 % (42.0-75.0); Hematocrit 27.5 % (36.0-47.0); Hemoglobin 8.4 g/dL (12.0-16.0); Mean Corpuscular HGB CONC 30.5 g/dL (32.0-36.0); Mean Corpuscular Hemoglobin 29.8 pg (27.0-31.0); Mean Corpuscular Volume 97.5 fL (78.0-98.0); Mean Platelet Volume 10.2 fL (7.4-10.4); Platelet Count 192 10x3/uL (130-400); RBC Distribution Width 17.6 % (11.5-14.5); Red Blood Cell (RBC) Count 2.82 mill/uL (4.20-5.40)
[2023-06-19] MEDS: Amiodarone 200 MG TAB PO SCH (09:19)
[2023-06-19 13:09] VITALS: BMI 23.9
[2023-06-19] MEDS: Carvedilol 6.25 MG TAB PO SCH (16:04)
[2023-06-19] MEDS ORDERED: Carvedilol 6.25 MG TAB PO SCH (17:00)
[2023-06-20 04:19] LABS: Anion Gap 17 mmol/L (10-20); Globulin 3.7 g/dL (2.4-3.5)
[2023-06-20 04:23] LABS: ALT (SGPT) 34 U/L (8-55); AST (SGOT) 62 U/L (5-34); Albumin 2.5 g/dL (3.4-4.8); Alkaline Phosphatase 279 U/L (40-110); BUN (Urea Nitrogen) 83 mg/dL (9.8-20.1); Bilirubin, Total 0.7 mg/dL (0.2-1.2); Calc. Creatinine Clearance 26 mL/min (70-130); Calcium 9.9 mg/dL (7.8-10.44); Carbon Dioxide 22 mmol/L (23-31); Chloride 115 mmol/L (98-107); Estimated GFR 23; Glucose 112 mg/dL (80-115); Potassium 5.1 mmol/L (3.5-5.1); Protein, Total 6.2 g/dL (5.8-8.1); Sodium 149 mmol/L (136-145)
[2023-06-20 07:39] VITALS: TEMP 97.1
[2023-06-20] MEDS: Morphine 4 MG/ML VIAL SLOW IVP PRN (10:27)
[2023-06-20] MEDS: Lorazepam 2 MG/ML VIAL SLOW IVP PRN (10:27)
== END 2023-06-20 16:48 | disposition expired | DRG 163 ==
LOC: CCU 11:57 → IMCU/EMU 06-08 19:04 → CCU 06-10 08:51 → IMCU/EMU 06-19 17:28
PROVIDERS: ADMIT Student in an Organized Health Care Education/Training Program; ATTEND Student in an Organized Health Care Education/Training Program
PROC: 30233J1 Transfusion of Nonautologous Serum Albumin into Peripheral Vein, Percutaneous Approach (ICD-10-PCS; 2023-05-28)
PROC: 3E03329 Introduction of Other Anti-infective into Peripheral Vein, Percutaneous Approach (ICD-10-PCS; 2023-05-28)
PROC: 0B9F8ZX Drainage of Right Lower Lung Lobe, Via Natural or Artificial Opening Endoscopic, Diagnostic (ICD-10-PCS; 2023-05-30)
PROC: 0BH17EZ Insertion of Endotracheal Airway into Trachea, Via Natural or Artificial Opening (ICD-10-PCS; 2023-05-30)
PROC: 5A1945Z Respiratory Ventilation, 24-96 Consecutive Hours (ICD-10-PCS; 2023-05-30)
PROC: 4A133R1 Monitoring of Arterial Saturation, Peripheral, Percutaneous Approach (ICD-10-PCS; 2023-06-01)
PROC: 3E033XZ Introduction of Vasopressor into Peripheral Vein, Percutaneous Approach (ICD-10-PCS; 2023-06-01)
PROC: 0B9F8ZX Drainage of Right Lower Lung Lobe, Via Natural or Artificial Opening Endoscopic, Diagnostic (ICD-10-PCS; 2023-06-03)
PROC: 30233K1 Transfusion of Nonautologous Frozen Plasma into Peripheral Vein, Percutaneous Approach (ICD-10-PCS; 2023-06-04)
PROC: 30233N1 Transfusion of Nonautologous Red Blood Cells into Peripheral Vein, Percutaneous Approach (ICD-10-PCS; 2023-06-04)
PROC: 30233N1 Transfusion of Nonautologous Red Blood Cells into Peripheral Vein, Percutaneous Approach (ICD-10-PCS; 2023-06-04)
PROC: 3E033XZ Introduction of Vasopressor into Peripheral Vein, Percutaneous Approach (ICD-10-PCS; 2023-06-04)
PROC: 0BH17EZ Insertion of Endotracheal Airway into Trachea, Via Natural or Artificial Opening (ICD-10-PCS; 2023-06-04)
PROC: 5A1945Z Respiratory Ventilation, 24-96 Consecutive Hours (ICD-10-PCS; 2023-06-04)
PROC: 30233N1 Transfusion of Nonautologous Red Blood Cells into Peripheral Vein, Percutaneous Approach (ICD-10-PCS; 2023-06-04)
PROC: 0BBF0ZZ Excision of Right Lower Lung Lobe, Open Approach (ICD-10-PCS; principal; 2023-06-05)
PROC: 0W994ZZ Drainage of Right Pleural Cavity, Percutaneous Endoscopic Approach (ICD-10-PCS; 2023-06-05)
PROC: 0BQF0ZZ Repair Right Lower Lung Lobe, Open Approach (ICD-10-PCS; 2023-06-05)
PROC: 0W9900Z Drainage of Right Pleural Cavity with Drainage Device, Open Approach (ICD-10-PCS; 2023-06-05)
PROC: 30233J1 Transfusion of Nonautologous Serum Albumin into Peripheral Vein, Percutaneous Approach (ICD-10-PCS; 2023-06-06)
PROC: 5A0945A Assistance with Respiratory Ventilation, 24-96 Consecutive Hours, High Flow/Velocity Cannula (ICD-10-PCS; 2023-06-07)
PROC: 0W3 Anatomical Regions, General, Control (ICD-10-PCS; 2023-06-10)
PROC: 0W9930Z Drainage of Right Pleural Cavity with Drainage Device, Percutaneous Approach (ICD-10-PCS; 2023-06-10)
PROC: 5A1955Z Respiratory Ventilation, Greater than 96 Consecutive Hours (ICD-10-PCS; 2023-06-10)
PROC: 0BJ08ZZ Inspection of Tracheobronchial Tree, Via Natural or Artificial Opening Endoscopic (ICD-10-PCS; 2023-06-14)
PROC: 5A09457 Assistance with Respiratory Ventilation, 24-96 Consecutive Hours, Continuous Positive Airway Pressure (ICD-10-PCS; 2023-06-17)
DX: S27.1XXA Traumatic hemothorax, initial encounter (principal); A41.9 Sepsis, unspecified organism; J96.01 Acute respiratory failure with hypoxia; G93.41 Metabolic encephalopathy; J69.0 Pneumonitis due to inhalation of food and vomit; N17.0 Acute kidney failure with tubular necrosis; R65.21 Severe sepsis with septic shock; J96.02 Acute respiratory failure with hypercapnia; S27.331A Laceration of lung, unilateral, initial encounter; D65 Disseminated intravascular coagulation [defibrination syndrome]; J13 Pneumonia due to Streptococcus pneumoniae; I50.33 Acute on chronic diastolic (congestive) heart failure; I50.32 Chronic diastolic (congestive) heart failure; E44.0 Moderate protein-calorie malnutrition; E87.1 Hypo-osmolality and hyponatremia; N39.0 Urinary tract infection, site not specified; D62 Acute posthemorrhagic anemia; D68.9 Coagulation defect, unspecified; N18.4 Chronic kidney disease, stage 4 (severe); J93.9 Pneumothorax, unspecified; I13.0 Hypertensive heart and chronic kidney disease with heart failure and stage 1 through stage 4 chronic kidney disease, or unspecified chronic kidney disease; N17.9 Acute kidney failure, unspecified; G93.1 Anoxic brain damage, not elsewhere classified; F03.A4 Unspecified dementia, mild, with anxiety; I42.9 Cardiomyopathy, unspecified; E78.5 Hyperlipidemia, unspecified; I25.10 Atherosclerotic heart disease of native coronary artery without angina pectoris; E03.9 Hypothyroidism, unspecified; F41.9 Anxiety disorder, unspecified; F32.A Depression, unspecified; F17.210 Nicotine dependence, cigarettes, uncomplicated; I48.0 Paroxysmal atrial fibrillation; E87.6 Hypokalemia; E83.42 Hypomagnesemia; L89.151 Pressure ulcer of sacral region, stage 1; Z85.21 Personal history of malignant neoplasm of larynx; W19.XXXA Unspecified fall, initial encounter; E16.2 Hypoglycemia, unspecified; R53.81 Other malaise; S90.32XA Contusion of left foot, initial encounter; S90.31XA Contusion of right foot, initial encounter; I27.20 Pulmonary hypertension, unspecified; T17.990A Other foreign object in respiratory tract, part unspecified in causing asphyxiation, initial encounter; Z98.890 Other specified postprocedural states; Z95.5 Presence of coronary angioplasty implant and graft; Z88.6 Allergy status to analgesic agent; Z79.899 Other long term (current) drug therapy; Z79.890 Hormone replacement therapy; Z79.51 Long term (current) use of inhaled steroids; Z90.710 Acquired absence of both cervix and uterus; Z95.810 Presence of automatic (implantable) cardiac defibrillator; Z51.5 Encounter for palliative care; Z53.32 Thoracoscopic surgical procedure converted to open procedure; R57.8 Other shock; R00.1 Bradycardia, unspecified; I44.0 Atrioventricular block, first degree; Z88.8 Allergy status to other drugs, medicaments and biological substances; Z79.01 Long term (current) use of anticoagulants; I25.118 Atherosclerotic heart disease of native coronary artery with other forms of angina pectoris; E78.2 Mixed hyperlipidemia; N18.30 Chronic kidney disease, stage 3 unspecified; D63.1 Anemia in chronic kidney disease; I11.0 Hypertensive heart disease with heart failure; J44.9 Chronic obstructive pulmonary disease, unspecified
CPT/HCPCS: 36415; 36416; 36430; 36600; 70450; 71045; 71250; 76770; 80048; 80053; 80074; 80076; 80202; 80306; 81001; 82040; 82550; 82570; 82805; 83605; 83735; 83880; 84100; 84145; 84156; 84443; 84484; 84540; 85025; 85049; 85300; 85362; 85379; 85384; 85610; 85730; 86850; 86900; 86901; 87040; 87070; 87077; 87086; 87149; 87186; 87205; 87449; 87899; 88112; 88305; 88307; 93005; 93010; 93306; 94002; 94003; 94150; 94640; 94660; 94667; 94668; 94669; 94760; 94762; 97139; A4649; C1729; C9113; J0171; J0360; J0456; J0461; J0612; J0665; J0692; J0696; J1100; J1611; J1650; J1940; J2001; J2060; J2250; J2270; J2405; J2543; J2597; J2704; J3010; J3370; J3475; J3480; J3490; J7030; J7042; J7050; J7070; J7611; J7620; J7626; J7999; P9016; P9035; P9047; P9048; P9059